=== PATIENT | male | born 1965 | race American Indian/Alaskan Native ===

== ENCOUNTER 2020-02-10 13:42 | Inpatient (IN) | payer OTHER ==
--- NOTE | 2020-02-10 14:01 | Consultation ---
History of Present Illness Consult date: 02/10/20 History of present illness: [facility] Date of Service: 02/10/2020 13:42:23 Impression: Hyperglycemia related. Seizure Comments/Sign-Out: Patient presented with left hand twitching happened last night and again an hour ago. He also today felt his left face is weak. His BG was 411. Now is baseline - BG management - Consider EEG and TIA work up Metrics: Last Known Well: 02/10/2020 12:30:00 [facility] Notification Time: 02/10/2020 13:41:56 Arrival Time: 02/10/2020 13:30:00 Stamp Time: 02/10/2020 13:42:23 Time First Login Attempt: 02/10/2020 13:49:07 Video Start Time: 02/10/2020 13:49:07 Symptoms: hands twitching NIHSS Start Assessment Time: 02/10/2020 13:52:29 Patient is not a candidate for tPA. Patient was not deemed candidate for tPA thrombolytics because of Resolved symptoms (no residual disabling symptoms). Video End Time: 02/10/2020 13:56:33 CT head showed no acute hemorrhage or acute core infarct. CT head was reviewed. Clinical Presentation is not Suggestive of Large Vessel Occlusive Disease, Patient is not a Candidate for Thrombectomy ED Physician notified of diagnostic impression and management plan on 02/10/2020 13:58:06 Our recommendations are outlined below. Recommendations: Activate Stroke Protocol Admission/Order Set Stroke/Telemetry Floor Neuro Checks Bedside Swallow Eval DVT Prophylaxis IV Fluids, Normal Saline Head of Bed Below 30 Degrees Euglycemia and Avoid Hyperthermia (PRN Acetaminophen) Antiplatelet Therapy Recommended Lipid Panel to Be Obtained, if Not Done in the Last 30 Days Disposition: Neurology Follow Up Recommended Sign Out: Discussed with Emergency Department Provider History of Present Illness: Patient is a 54 year old Male. Patient was brought by EMS for symptoms of hands twitching Patient presented with left hand twitching happened last night and again an hour ago. He also today felt his left face is weak. His BG was 411. Now is baseline CT head showed no acute hemorrhage or acute core infarct. CT head was reviewed. Examination: 1A: Level of Consciousness - Alert; keenly responsive + 0 1B: Ask Month and Age - Both Questions Right + 0 1C: Blink Eyes & Squeeze Hands - Performs Both Tasks + 0 2: Test Horizontal Extraocular Movements - Normal + 0 3: Test Visual [place] - No Visual Loss + 0 4: Test Facial Palsy (Use Grimace if Obtunded) - Normal symmetry + 0 5A: Test Left Arm Motor Drift - No Drift for 10 Seconds + 0 5B: Test Right Arm Motor Drift - No Drift for 10 Seconds + 0 6A: Test Left Leg Motor Drift - No Drift for 5 Seconds + 0 6B: Test Right Leg Motor Drift - No Drift for 5 Seconds + 0 7: Test Limb Ataxia (FNF/Heel-Pulliam) - No Ataxia + 0 8: Test Sensation - Normal; No sensory loss + 0 9: Test Language/Aphasia - Normal; No aphasia + 0 10: Test Dysarthria - Normal + 0 11: Test Extinction/Inattention - No abnormality + 0 NIHSS Score: 0 Patient was informed the Neurology Consult would happen via TeleHealth consult by way of interactive audio and video telecommunications and consented to receiving care in this manner. Due to the immediate potential for life-threatening deterioration due to underlying acute neurologic illness, I spent 35 minutes providing critical care. This time includes time for face to face visit via telemedicine, review of medical records, imaging studies and discussion of findings with providers, the patient and/or family. Dr Mohan [facility] Case [id number] Medications and Allergies Allergies Allergy/AdvReac Type Severity Reaction Status Date / Time No Known Allergies Allergy Unverified 02/10/20 13:44
--- NOTE | 2020-02-10 14:05 | Cat Scan Report ---
CT HEAD WITHOUT CONTRAST INDICATION / CLINICAL INFORMATION: MAIN: CODE STROKE CALL [phone]. TECHNIQUE: Axial imaging performed from the skull apex through the skull base without the use of cont rast. Sagittal and coronal reformatted images. All CT scans at this location are performed using CT dose reduction for ALARA by means of automated exposure control. COMPARISON: None available. FINDINGS: CEREBRAL PARENCHYMA: No significant abnormality. No acute territorial infarct. HEMORRHAGE: None. EXTRA-AXIAL SPACES: Normal in size and morphology for the patient's age. VENTRICULAR SYSTEM: Normal in size and morphology for the patient's age. MIDLINE SHIFT OR HERNIATION: None. CEREBELLUM / BRAINSTEM: No significant abnormality. CALVARIUM: No significant abnormality. ORBITS: Normal as visualized. PARANASAL SINUSES / MASTOID AIR CELLS: Normal as visualized. SOFT TISSUES of HEAD: No significant abnormality. ADDITIONAL FINDINGS: None. IMPRESSION: No acute intracranial abnormality. These findings were discussed with Dr. Bonilla in the emergency department at 1400 hours. Signer Name: Haim Mcgovern Jr, MD Signed: 02/10/2020 2:01 PM Workstation Name: [id number]
[2020-02-10 14:25] LABS: Basophils % (Auto) 0.4 % (0.0-1.8); Eosinophils # (Auto) 0.1 K/mm3 (0.0-0.4); Eosinophils % (Auto) 1.6 % (0.0-4.3); Hematocrit 44.5 % (35.5-45.6); Hemoglobin 14.2 gm/dl (11.8-15.2); Lymphocytes # (Auto) 1.9 K/mm3 (1.2-5.4); Lymphocytes % (Auto) 35.9 % (13.4-35.0); Mean Corpuscular HGB Conc 32 % (32-34); Mean Corpuscular Volume 68 fl (84-94); Monocytes # (Auto) 0.5 K/mm3 (0.0-0.8); Platelet Count 282 K/mm3 (140-440); Red Blood Count 6.58 M/mm3 (3.65-5.03); Red Cell Distribution Width 14.2 % (13.2-15.2)
[2020-02-10 14:35] LABS: BUN/Creatinine Ratio 13; Blood Urea Nitrogen 9 mg/dL (9-20); Calcium 9.3 mg/dL (8.4-10.2); Hemolysis Index 6
[2020-02-10 14:50] LABS: INR 1.05 (0.87-1.13)
[2020-02-10 14:51] LABS: Partial Thromboplastin Time 28.7 Sec. (24.2-36.6)
--- NOTE | 2020-02-10 15:00 | Emergency Department Report ---
ED General Adult HPI - General Chief complaint: Neuro Symptoms/Deficit Stated complaint: STROKE Time Seen by Provider: 02/10/20 14:26 Source: patient, EMS Mode of arrival: Stretcher Limitations: No Limitations - History of Present Illness Initial comments: The patient presents to the emergency department with a chief complaint of left arm numbness and hand twitching that started approximately 1 PM today. Patient also states he has slurred speech but has now resolved. Patient denies chest pain, shortness breath, or headache. -: Sudden Location: upper extremity Radiation: non-radiation Severity scale (0 -10): 0 Consistency: now resolved Improves with: none Worsens with: none Associated Symptoms: denies other symptoms Treatments Prior to Arrival: none - Related Data Allergies Allergy/AdvReac Type Severity Reaction Status Date / Time No Known Allergies Allergy Unverified 02/10/20 13:44 ED Review of Systems ROS: Stated complaint: STROKE Other details as noted in HPI Comment: All other systems reviewed and negative Constitutional: denies: chills, fever Eyes: denies: eye pain, eye discharge, vision change ENT: denies: ear pain, throat pain Respiratory: denies: cough, shortness of breath, wheezing Cardiovascular: denies: chest pain, palpitations Endocrine: no symptoms reported Gastrointestinal: denies: abdominal pain, nausea, diarrhea Genitourinary: denies: urgency, dysuria Musculoskeletal: denies: back pain, joint swelling, arthralgia Skin: denies: rash, lesions Neurological: numbness. denies: headache, weakness, paresthesias Psychiatric: denies: anxiety, depression Hematological/Lymphatic: denies: easy bleeding, easy bruising ED Past Medical Hx - Past Medical History Previous Medical History?: Yes Hx Hypertension: Yes Hx Diabetes: Yes ED Physical Exam - General Limitations: No Limitations General appearance: alert, in no apparent distress - Head Head exam: Present: atraumatic, normocephalic - Eye Eye exam: Present: normal appearance, PERRL, EOMI - ENT ENT exam: Present: mucous membranes moist - Neck Neck exam: Present: normal inspection - Respiratory Respiratory exam: Present: normal lung sounds bilaterally. Absent: respiratory distress - Cardiovascular Cardiovascular Exam: Present: regular rate, normal rhythm. Absent: systolic murmur, diastolic murmur, rubs, gallop - GI/Abdominal GI/Abdominal exam: Present: soft, normal bowel sounds. Absent: distended, tenderness - Rectal Rectal exam: Present: deferred - Extremities Exam Extremities exam: Present: normal inspection - Back Exam Back exam: Present: normal inspection - Neurological Exam Neurological exam: Present: alert, oriented X3, CN II-XII intact. Absent: motor sensory deficit - Psychiatric Psychiatric exam: Present: normal affect, normal mood - Skin Skin exam: Present: warm, dry, intact, normal color. Absent: rash ED Course Vital Signs 02/10/20 02/10/20 02/10/20 13:56 14:00 14:05 Temperature 98.7 F Pulse Rate 96 H 100 H 95 H Respiratory 15 14 Rate Blood Pressure 147/86 Blood Pressure 147/86 [Left] O2 Sat by Pulse 96 96 95 Oximetry 02/10/20 02/10/20 02/10/20 14:07 15:00 15:29 Temperature Pulse Rate 91 H 86 Respiratory 18 Rate Blood Pressure 133/69 Blood Pressure 133/69 [Left] O2 Sat by Pulse 96 95 97 Oximetry ED Medical Decision Making - Lab Data Result diagrams: 02/10/20 14:12 02/10/20 14:12 Lab Results 02/10/20 02/10/20 02/10/20 Range/Units 14:12 14:12 14:12 WBC 5.3 (4.5-11.0) K/mm3 RBC 6.58 H (3.65-5.03) M/mm3 Hgb 14.2 (11.8-15.2) gm/dl Hct 44.5 (35.5-45.6) % MCV 68 L (84-94) fl MCH 22 L (28-32) pg MCHC 32 (32-34) % RDW 14.2 (13.2-15.2) % Plt Count 282 (140-440) K/mm3 Lymph % (Auto) 35.9 H (13.4-35.0) % [place] % (Auto) 9.0 H (0.0-7.3) % Eos % (Auto) 1.6 (0.0-4.3) % Baso % (Auto) 0.4 (0.0-1.8) % Lymph # 1.9 (1.2-5.4) K/mm3 [place] # 0.5 (0.0-0.8) K/mm3 Eos # 0.1 (0.0-0.4) K/mm3 Baso # 0.0 (0.0-0.1) K/mm3 Seg Neutrophils % 53.1 (40.0-70.0) % Seg Neutrophils # 2.8 (1.8-7.7) K/mm3 PT 13.8 (12.2-14.9) Sec. INR 1.05 (0.87-1.13) APTT 28.7 (24.2-36.6) Sec. Sodium 129 L (137-145) mmol/L Potassium 4.4 (3.6-5.0) mmol/L Chloride 91.3 L (98-107) mmol/L Carbon Dioxide 22 (22-30) mmol/L Anion Gap 20 mmol/L BUN 9 (9-20) mg/dL Creatinine 0.7 L (0.8-1.5) mg/dL Estimated GFR > 60 ml/min BUN/Creatinine Ratio 13 % Glucose 417 H (75-100) mg/dL POC Glucose (70-105) Calcium 9.3 (8.4-10.2) mg/dL Troponin T < 0.010 (0.00-0.029) ng/mL 02/10/20 Range/Units 14:16 WBC (4.5-11.0) K/mm3 RBC (3.65-5.03) M/mm3 Hgb (11.8-15.2) gm/dl Hct (35.5-45.6) % MCV (84-94) fl MCH (28-32) pg MCHC (32-34) % RDW (13.2-15.2) % Plt Count (140-440) K/mm3 Lymph % (Auto) (13.4-35.0) % [place] % (Auto) (0.0-7.3) % Eos % (Auto) (0.0-4.3) % Baso % (Auto) (0.0-1.8) % Lymph # (1.2-5.4) K/mm3 [place] # (0.0-0.8) K/mm3 Eos # (0.0-0.4) K/mm3 Baso # (0.0-0.1) K/mm3 Seg Neutrophils % (40.0-70.0) % Seg Neutrophils # (1.8-7.7) K/mm3 PT (12.2-14.9) Sec. INR (0.87-1.13) APTT (24.2-36.6) Sec. Sodium (137-145) mmol/L Potassium (3.6-5.0) mmol/L Chloride (98-107) mmol/L Carbon Dioxide (22-30) mmol/L Anion Gap mmol/L BUN (9-20) mg/dL Creatinine (0.8-1.5) mg/dL Estimated GFR ml/min BUN/Creatinine Ratio % Glucose (75-100) mg/dL POC Glucose 356 H (70-105) Calcium (8.4-10.2) mg/dL Troponin T (0.00-0.029) ng/mL - EKG Data -: EKG Interpreted by Me EKG shows normal: sinus rhythm Rate: normal - Radiology Data interpreted by me: Discussed results with patient Critical care attestation.: If time is entered above; I have spent that time in minutes in the direct care of this critically ill patient, excluding procedure time. ED Disposition Clinical Impression: Numbness Disposition: DC-01 TO HOME OR SELFCARE Is pt being admited?: Yes Does the pt Need Aspirin: No Condition: Fair - Assessment Assessment Interval: Baseline - Level of Consciousness 1a. Level of Consciousness: alert/keenly responsive - LOC Questions 1b. LOC Questions: answers both correctly - LOC Command 1c. LOC Commands: performs tasks correctly - Best Gaze 2. Best Gaze: normal - Visual 3. Visual: no visual loss - Facial Palsy 4. Facial Palsy: normal symmetrical movement - Motor Arm 5a. Motor Arm Left: no drift 5b. Motor Arm Right: no drift - Motor Leg 6a. Motor Leg Left: no drift 6b. Motor Leg Right: no drift - Limb Ataxia 7. Limb Ataxia: absent - Sensory 8. Sensory: normal - Best Language 9. Best Language: no aphasia - Dysarthria 10. Dysarthria: normal - Extinction and Inattention 11. Extinction/Inattention: no abnormality - Scoring Total Score: 0 Stroke Severity: No Stroke Symptoms
[2020-02-10] MEDS ORDERED: ASPIRIN 81 MG TAB CHEW PO ONE ×2 (16:31→23:15)
[2020-02-10] MEDS ORDERED: oxyCODONE /ACETAMINOPHEN 5-325MG TAB PO PRN (22:07)
[2020-02-10] MEDS ORDERED: ONDANSETRON 4 MG/2 ML INJ IV PRN (22:07)
[2020-02-10] MEDS ORDERED: HYDROmorphone 1 MG/1 ML INJ IV PRN (22:07)
[2020-02-10] MEDS ORDERED: ACETAMINOPHEN 325 MG TAB PO PRN (22:07)
[2020-02-10] MEDS ORDERED: METOCLOPRAMIDE 10 MG/2 ML INJ IV PRN (22:07)
--- NOTE | 2020-02-10 22:07 | History and Physical Report ---
History of Present Illness Date of examination: 02/10/20 Date of admission: 02/10/20 17:24 Chief complaint: L arm numbness since yesterday Left side numbness face arl and Lower extremity since AM History of present illness: 54 y/o AAM presents to the emergency department with a chief complaint of left arm numbness and hand twitching that started approximately 1 PM today. Patient also states he has slurred speech but has now resolved. Patient denies chest pain, shortness breath, or headache. -: Sudden Location: upper extremity Radiation: non-radiation Severity scale (0 -10): 0 Consistency: now resolved Improves with: none Worsens with: none Associated Symptoms: denies other symptoms Treatments Prior to Arrival: none Past Medical History Previous Medical History?: Yes HHypertension: Yes Diabetes -not on any mmeds Review of Systems ROS: Stated complaint: STROKE Other details as noted in HPI Comment: All other systems reviewed and negative Constitutional: denies: chills, fever Eyes: denies: eye pain, eye discharge, vision change ENT: denies: ear pain, throat pain Respiratory: denies: cough, shortness of breath, wheezing Cardiovascular: denies: chest pain, palpitations Endocrine: no symptoms reported Gastrointestinal: denies: abdominal pain, nausea, diarrhea Genitourinary: denies: urgency, dysuria Musculoskeletal: denies: back pain, joint swelling, arthralgia Skin: denies: rash, lesions Neurological: numbness. denies: headache, weakness, paresthesias Psychiatric: denies: anxiety, depression Hematological/Lymphatic: denies: easy bleeding, easy bruising Past History Past Medical History: hypertension Past Surgical History: No surgical history Social history: lives with family, full code Family history: hypertension Medications and Allergies Allergies Allergy/AdvReac Type Severity Reaction Status Date / Time No Known Allergies Allergy Unverified 02/10/20 13:44 Exam - Constitutional Vitals: Temp Pulse Resp BP Pulse Ox 98.5 F 104 H 21 150/70 94 02/10/20 20:17 02/10/20 21:10 02/10/20 21:10 02/10/20 21:10 02/10/20 20:17 General appearance: Present: no acute distress, well-nourished - EENT Eyes: Present: PERRL ENT: hearing intact, clear oral mucosa - Neck Neck: Present: supple, normal ROM - Respiratory Respiratory effort: normal Respiratory: bilateral: CTA - Cardiovascular Heart rate: 78 Rhythm: regular Heart Sounds: Present: S1 & S2. Absent: rub, click - Extremities Extremities: pulses symmetrical, No edema Peripheral Pulses: within normal limits - Abdominal General gastrointestinal: Present: soft, non-tender, non-distended, normal bowel sounds Male genitourinary: Present: normal - Integumentary Integumentary: Present: clear, warm, dry - Musculoskeletal Musculoskeletal: gait normal, strength equal bilaterally - Psychiatric Psychiatric: appropriate mood/affect, intact judgment & insight - Neurologic Neurologic: CNII-XII intact, moves all extremities Results - Labs CBC & Chem 7: 02/11/20 04:17 02/11/20 04:17 Labs: Laboratory Last Values WBC 5.3 K/mm3 (4.5-11.0) 02/10/20 14:12 RBC 6.58 M/mm3 (3.65-5.03) H 02/10/20 14:12 Hgb 14.2 gm/dl (11.8-15.2) 02/10/20 14:12 Hct 44.5 % (35.5-45.6) 02/10/20 14:12 MCV 68 fl (84-94) L 02/10/20 14:12 MCH 22 pg (28-32) L 02/10/20 14:12 MCHC 32 % (32-34) 02/10/20 14:12 RDW 14.2 % (13.2-15.2) 02/10/20 14:12 Plt Count 282 K/mm3 (140-440) 02/10/20 14:12 Lymph % (Auto) 35.9 % (13.4-35.0) H 02/10/20 14:12 [place] % (Auto) 9.0 % (0.0-7.3) H 02/10/20 14:12 Eos % (Auto) 1.6 % (0.0-4.3) 02/10/20 14:12 Baso % (Auto) 0.4 % (0.0-1.8) 02/10/20 14:12 Lymph # 1.9 K/mm3 (1.2-5.4) 02/10/20 14:12 [place] # 0.5 K/mm3 (0.0-0.8) 02/10/20 14:12 Eos # 0.1 K/mm3 (0.0-0.4) 02/10/20 14:12 Baso # 0.0 K/mm3 (0.0-0.1) 02/10/20 14:12 Seg Neutrophils % 53.1 % (40.0-70.0) 02/10/20 14:12 Seg Neutrophils # 2.8 K/mm3 (1.8-7.7) 02/10/20 14:12 PT 13.8 Sec. (12.2-14.9) 02/10/20 14:12 INR 1.05 (0.87-1.13) 02/10/20 14:12 APTT 28.7 Sec. (24.2-36.6) 02/10/20 14:12 Sodium 129 mmol/L (137-145) L 02/10/20 14:12 Potassium 4.4 mmol/L (3.6-5.0) 02/10/20 14:12 Chloride 91.3 mmol/L (98-107) L 02/10/20 14:12 Carbon Dioxide 22 mmol/L (22-30) 02/10/20 14:12 Anion Gap 20 mmol/L 02/10/20 14:12 BUN 9 mg/dL (9-20) 02/10/20 14:12 Creatinine 0.7 mg/dL (0.8-1.5) L 02/10/20 14:12 Estimated GFR > 60 ml/min 02/10/20 14:12 BUN/Creatinine Ratio 13 % 02/10/20 14:12 Glucose 417 mg/dL (75-100) H 02/10/20 14:12 POC Glucose 325 (70-105) H 02/10/20 21:41 Calcium 9.3 mg/dL (8.4-10.2) 02/10/20 14:12 Troponin T < 0.010 ng/mL (0.00-0.029) 02/10/20 14:12 Short CBC 02/10/20 02/11/20 Range/Units 14:12 04:17 WBC 5.3 5.6 (4.5-11.0) K/mm3 Hgb 14.2 14.6 (11.8-15.2) gm/dl Hct 44.5 46.2 H (35.5-45.6) % Plt Count 282 303 (140-440) K/mm3 BMP 02/10/20 02/11/20 14:12 04:17 Sodium 129 L 130 L Potassium 4.4 4.2 Chloride 91.3 L 93.1 L Carbon Dioxide 22 22 BUN 9 11 Creatinine 0.7 L 0.7 L Glucose 417 H 295 H Calcium 9.3 9.2 Cardiac Enzymes 02/10/20 Range/Units 14:12 Troponin T < 0.010 (0.00-0.029) ng/mL Liver Function 02/11/20 Range/Units 04:17 Total Bilirubin 0.30 (0.1-1.2) mg/dL AST 11 (5-40) units/L ALT 11 (7-56) units/L Alkaline Phosphatase 135 H (35-129) units/L Albumin 3.8 L (3.9-5) g/dL - Imaging and Cardiology EKG: report reviewed (NSR 99/min) Villar/IV: Voiding Method Toilet IV Catheter Type [Left INT / Saline Lock Antecubital] Assessment and Plan Advance Directives: Yes (Full code) VTE prophylaxis?: Chemical Plan of care discussed with patient/family: Yes - Patient Problems (1) TIA (transient ischemic attack) Current Visit: Yes Status: Acute Plan to address problem: TIA workup Neuro consult Symptoms maybe secondary to Hyperglycemia which is new onset Check MRi [place] ECHO and CDS (2) IDDM (insulin dependent diabetes mellitus) Current Visit: Yes Status: Chronic Plan to address problem: On Insulin at home Noncompliant Novalog mix 35units bid initiated Check A1c (3) HTN (hypertension) Current Visit: Yes Status: Chronic Qualifiers: Hypertension type: essential hypertension Qualified Code(s): I10 - Essential (primary) hypertension Plan to address problem: Cont antihypertensives (4) DVT prophylaxis Current Visit: Yes Status: Acute Plan to address problem: on Heparin and GI prophylaxis
[2020-02-10] MEDS ORDERED: SODIUM CHLORIDE 0.9% 1000 ML 1,000 ML IV SCH (22:15)
[2020-02-10] MEDS: INSULIN LISPRO 100 UNIT/ML SUB-Q SCH (22:29)
[2020-02-11 05:00] LABS: Basophils % (Auto) 0.4 % (0.0-1.8); Eosinophils # (Auto) 0.2 K/mm3 (0.0-0.4); Eosinophils % (Auto) 2.9 % (0.0-4.3); Hematocrit 46.2 % (35.5-45.6); Hemoglobin 14.6 gm/dl (11.8-15.2); Lymphocytes # (Auto) 2.4 K/mm3 (1.2-5.4); Lymphocytes % (Auto) 43.6 % (13.4-35.0); Mean Corpuscular HGB Conc 32 % (32-34); Monocytes # (Auto) 0.6 K/mm3 (0.0-0.8); Monocytes % (Auto) 10.2 % (0.0-7.3); Platelet Count 303 K/mm3 (140-440); Red Blood Count 6.85 M/mm3 (3.65-5.03); Red Cell Distribution Width 14.6 % (13.2-15.2)
[2020-02-11 05:10] LABS: Mean Corpuscular Volume 67 fl (84-94)
[2020-02-11 06:02] LABS: Alanine Aminotransferase 11 units/L (7-56); Albumin 3.8 g/dL (3.9-5); BUN/Creatinine Ratio 16; Blood Urea Nitrogen 11 mg/dL (9-20); Calcium 9.2 mg/dL (8.4-10.2); HDL Cholesterol 33 mg/dL (40-59); Hemolysis Index 2; LDL Cholesterol,Direct 122 mg/dL (50-130)
[2020-02-11] MEDS ORDERED: INSULIN LISPRO 100 UNIT/ML SUB-Q SCH (07:30)
[2020-02-11] MEDS: INSULIN LISPRO 100 UNIT/ML SUB-Q SCH ×4 (07:30→21:50)
[2020-02-11] MEDS ORDERED: INSULIN NPH/REGULAR 70/30 INJ SUB-Q SCH (08:00)
--- NOTE | 2020-02-11 09:10 | Progress Note ---
Assessment and Plan Assessment and plan: --Acute CVA Current Visit: Yes Status: Acute Not a candidate for TPA CT head without contrast; no acute abnormality Neuro work-up is in progress Neuro consulted Aspirin statin. PT OT rehab Discharge planning per case management Neuro work-up; CT head without contrast; no acute abnormality MRI; 2 punctate foci of restricted diffusion in the right periventricular white matter Carotid Doppler; right internal carotid artery more than 70% stenosis but less than total occlusion Left internal carotid artery less than 50% stenosis. --Right internal carotid artery stenosis> 70% Vascular consulted, antiplatelets and statins --IDDM (insulin dependent diabetes mellitus) Current Visit: Yes Status: Chronic On Insulin at home. Novalog mix 35units bid initiated Accu-Chek sliding scale coverage ADA diet HbA1c 14.7, diabetic education Diabetic diet education Possible home health nurse for disease monitoring at discharge --Medical noncompliance Current Visit: Yes Status: Chronic strongly advised to comply with medications diet follow-up visits Patient verbalized understanding --HTN (hypertension) Current Visit: Yes Status: Chronic Cont current antihypertensives PRN medications. --Ongoing tobacco use; Current Visit: Yes Status: Acute Smoking cessation counseling. Nicotine patch as needed. --Recreational drug use; Current Visit: Yes Status: Acute Advised to quit recreational drug use -- DVT prophylaxis Current Visit: Yes Status: Acute on Heparin and GI prophylaxis Follow PT OT DC planning per case management History Interval history: Patient seen at the bedside and examined Admitted with acute CVA Neuro work-up is in progress Patient had slurring speech which resolved Mild left-sided weakness Vital signs noted Hospitalist Physical - Constitutional Vitals: Temp Pulse Resp BP Pulse Ox 98.2 F 69 18 126/69 100 02/11/20 05:37 02/11/20 05:37 02/11/20 05:37 02/11/20 05:37 02/11/20 05:37 General appearance: Present: no acute distress, well-nourished - EENT Eyes: Present: PERRL, EOM intact - Neck Neck: Present: supple, normal ROM - Respiratory Respiratory effort: normal Respiratory: bilateral: diminished, negative: rales, rhonchi, wheezing - Cardiovascular Rhythm: regular Heart Sounds: Present: S1 & S2 - Extremities Extremities: no ischemia, No edema - Abdominal General gastrointestinal: soft, non-tender, non-distended, normal bowel sounds - Integumentary Integumentary: Present: clear, warm - Psychiatric Psychiatric: appropriate mood/affect, cooperative - Neurologic Neurologic: moves all extremities, other (Residual weakness) Results - Labs CBC & Chem 7: 02/11/20 04:17 02/11/20 04:17 Labs: Laboratory Last Values WBC 5.6 K/mm3 (4.5-11.0) 02/11/20 04:17 RBC 6.85 M/mm3 (3.65-5.03) H 02/11/20 04:17 Hgb 14.6 gm/dl (11.8-15.2) 02/11/20 04:17 Hct 46.2 % (35.5-45.6) H 02/11/20 04:17 MCV 67 fl (84-94) L 02/11/20 04:17 MCH 21 pg (28-32) L 02/11/20 04:17 MCHC 32 % (32-34) 02/11/20 04:17 RDW 14.6 % (13.2-15.2) 02/11/20 04:17 Plt Count 303 K/mm3 (140-440) 02/11/20 04:17 Lymph % (Auto) 43.6 % (13.4-35.0) H 02/11/20 04:17 [place] % (Auto) 10.2 % (0.0-7.3) H 02/11/20 04:17 Eos % (Auto) 2.9 % (0.0-4.3) 02/11/20 04:17 Baso % (Auto) 0.4 % (0.0-1.8) 02/11/20 04:17 Lymph # 2.4 K/mm3 (1.2-5.4) 02/11/20 04:17 [place] # 0.6 K/mm3 (0.0-0.8) 02/11/20 04:17 Eos # 0.2 K/mm3 (0.0-0.4) 02/11/20 04:17 Baso # 0.0 K/mm3 (0.0-0.1) 02/11/20 04:17 Seg Neutrophils % 42.9 % (40.0-70.0) 02/11/20 04:17 Seg Neutrophils # 2.4 K/mm3 (1.8-7.7) 02/11/20 04:17 PT 13.8 Sec. (12.2-14.9) 02/10/20 14:12 INR 1.05 (0.87-1.13) 02/10/20 14:12 APTT 28.7 Sec. (24.2-36.6) 02/10/20 14:12 Sodium 130 mmol/L (137-145) L 02/11/20 04:17 Potassium 4.2 mmol/L (3.6-5.0) 02/11/20 04:17 Chloride 93.1 mmol/L (98-107) L 02/11/20 04:17 Carbon Dioxide 22 mmol/L (22-30) 02/11/20 04:17 Anion Gap 19 mmol/L 02/11/20 04:17 BUN 11 mg/dL (9-20) 02/11/20 04:17 Creatinine 0.7 mg/dL (0.8-1.5) L 02/11/20 04:17 Estimated GFR > 60 ml/min 02/11/20 04:17 BUN/Creatinine Ratio 16 % 02/11/20 04:17 Glucose 295 mg/dL (75-100) H 02/11/20 04:17 POC Glucose 257 (70-105) H 02/11/20 08:12 Hemoglobin A1c 14.7 % (4-6) H 02/10/20 14:12 Calcium 9.2 mg/dL (8.4-10.2) 02/11/20 04:17 Total Bilirubin 0.30 mg/dL (0.1-1.2) 02/11/20 04:17 AST 11 units/L (5-40) 02/11/20 04:17 ALT 11 units/L (7-56) 02/11/20 04:17 Alkaline Phosphatase 135 units/L (35-129) H 02/11/20 04:17 Troponin T < 0.010 ng/mL (0.00-0.029) 02/10/20 14:12 Total Protein 7.4 g/dL (6.3-8.2) 02/11/20 04:17 Albumin 3.8 g/dL (3.9-5) L 02/11/20 04:17 Albumin/Globulin Ratio 1.1 % 02/11/20 04:17 Triglycerides 277 mg/dL (2-149) H 02/11/20 04:17 Cholesterol 185 mg/dL (50-199) 02/11/20 04:17 LDL Cholesterol Direct 122 mg/dL (50-130) 02/11/20 04:17 HDL Cholesterol 33 mg/dL (40-59) L 02/11/20 04:17 Cholesterol/HDL Ratio 5.60 % 02/11/20 04:17 Villar/IV: Voiding Method Toilet IV Catheter Type [Left INT / Saline Lock Antecubital] Active Medications - Current Medications Current Medications: Generic Name Dose Route Start Last Admin Trade Name Freq PRN Reason Stop Dose Admin Acetaminophen 650 mg 02/10/20 22:07 Tylenol PO Q4H PRN Pain MILD(1-3)/Fever >100.5/COPE Famotidine 20 mg 02/11/20 10:00 Pepcid IV BID [facility] Heparin Sodium (Porcine) 5,000 unit 02/11/20 10:00 Heparin SUB-Q Q12HR [facility] Hydromorphone HCl 0.5 mg 02/10/20 22:07 Dilaudid IV Q3H PRN Pain , Severe (7-10) Sodium Chloride 1,000 mls @ 75 mls/hr 02/10/20 22:15 Nacl 0.9% 1000 Ml IV DIRECT [facility] Insulin Human Isoph/Insulin Regular 30 unit 02/11/20 08:30 Humulin 70/30 SUB-Q BIDDIAB [facility] Insulin Human Lispro 0 unit 02/10/20 22:30 02/10/20 22:29 Humalog SUB-Q 6 unit ACHS [facility] Administration Protocol Losartan Potassium 100 mg 02/11/20 08:00 Cozaar PO QDAY [facility] Metoclopramide HCl 10 mg 02/10/20 22:07 Reglan IV Q6H PRN Nausea And Vomiting Ondansetron HCl 4 mg 02/10/20 22:07 Zofran IV Q8H PRN Nausea And Vomiting Oxycodone/Acetaminophen 1 tab 02/10/20 22:07 Percocet 5/325 PO Q6H PRN Pain, Moderate (4-6) Sodium Chloride 10 ml 02/11/20 10:00 Sodium Chloride Flush Syringe 10 Ml IV BID [facility] Sodium Chloride 10 ml 02/10/20 22:07 Sodium Chloride Flush Syringe 10 Ml IV PRN PRN LINE FLUSH
[2020-02-11] MEDS: LOSARTAN 50 MG TAB PO SCH ×2 (10:20→11:00)
--- NOTE | 2020-02-11 10:38 | Vascular Lab Report ---
"DUPLEX DOPPLER ULTRASOUND CAROTID, BILATERAL INDICATION: stroke. FINDINGS: RIGHT CAROTID: Moderate plaque Right CCA velocity: 108 cm/sec. Right ICA peak systolic velocity: 239 cm/sec. ICA/CCA PSV Ratio: 2.2. Right Vertebral Artery: Antegrade flow. LEFT CAROTID: Mild plaque Left CCA velocity: 80 cm/sec. Left ICA peak systolic velocity: 103 cm/sec. ICA/CCA PSV Ratio: 1.3. Left Vertebral Artery: Antegrade flow. IMPRESSION: 1. Right Internal Carotid Artery: >70% diameter stenosis but less than total occlusion 2. Left Internal Carotid Artery: Less than 50% diameter stenosis. Velocity criteria are extrapolated from diameter data as defined by the Society of Radiologists in Ul trasound Consensus Conference, Radiology 2003; 229;340-346. Degree of Stenosis (%) || ICA PSV (cm/sec) || Plaque estimate (%) || ICA/CCA PSV Ratio Normal <125 None <2.0 <50 <125 <50 <2.0 50-69 125-230 50 2.0-4.0 70 but less than 100 >230 50 >4.0 Near occlusion High, low, or none visible variable Total occlusion None visible; no lumen N/A Signer Name: Shaggy Locke MD Signed: 02/11/2020 10:33 AM Workstation Name: [id number]"
--- NOTE | 2020-02-11 10:49 | Magnetic Resonance Report ---
MRI BRAIN 02/11/2020 INDICATION / CLINICAL INFORMATION: MAIN: stroke, LT ARM NUMBNESS PATIENT REFUSED TO COMPLETE STUDY.. TECHNIQUE: Multiplanar, multisequence MR images of the brain were obtained. COMPARISON: CT 02/10/2020 FINDINGS: BRAIN / INTRACRANIAL CONTENTS: Unenhanced MR images of the brain were obtained and compared to the [facility] CT scan. There are 2 punctate foci of increased signal on the diffusion-weighted images located in the right f rontal and parietal periventricular white matter. These appear to be associated with some decreased A DC signal, and would be consistent with very small foci of acute ischemic injury. No other areas of s ubcortical or cortical acute ischemic change are present. Ventricles and sulci are normal in size and shape. There is no evidence of hemorrhage or mass. There are no other areas of abnormal T2-weighted or diffusion weighted signal. Incidental note is made of possible small meningioma in the left subfrontal region. This 1 cm extra-a xial nodule is densely calcified on CT,. Differential diagnosis would include densely calcified menin gioma versus benign osteoma. This is of unlikely acute clinical significance. EXTRACRANIAL: Unremarkable CRANIOCERVICAL JUNCTION: No significant abnormality. VASCULAR FLOW-VOIDS: No significant abnormality. IMPRESSION: 2 punctate foci of restricted diffusion in right periventricular white matter as described above. Se e above discussion for details. Signer Name: Zach Blanchard MD Signed: 02/11/2020 10:44 AM Workstation Name: [id number]
[2020-02-11] MEDS: INSULIN NPH/REGULAR 70/30 INJ SUB-Q SCH ×2 (10:53→17:02)
[2020-02-11] MEDS: FAMOTIDINE 20 MG/2 ML INJ IV SCH ×2 (10:59→21:46)
[2020-02-11] MEDS: HEPARIN 5,000 UNIT/1 ML VIAL SUB-Q SCH ×2 (11:05→21:46)
--- NOTE | 2020-02-11 12:16 | Consultation ---
History of Present Illness Consult date: 02/11/20 Reason for Consult: Left hand weakness, slurred speech Chief complaint: Left hand weakness, slurred speech History of present illness: Patient is a 54-year-old man with a history of diabetes and hypertension. Yesterday at around 1 PM, the patient began to experience left hand paresthesias and numbness. He then noted that his left hand was involuntarily twitching, however he did not lose consciousness. This lasted for about 3 to 5 minutes. He then experienced slurred speech, which lasted around the same period of time. Patient was then brought to [facility] for further evaluation. His symptoms had resolved by the time he came to the hospital, and NIHSS was 0 when evaluated by telemetry neurology. However, patient stated that he felt some mild weakness in the left upper extremity, which improved by yesterday evening. Today the patient feels that he is back at baseline, however feels that he has mild blurry vision in his right eye. Patient states that he takes aspirin at home, however has not been compliant with his medications for the past few weeks, including his diabetes and hypertension medications. Past History Past Medical History: diabetes, hypertension Past Surgical History: No surgical history Social history: lives with family, smoking, full code Family history: hypertension Medications and Allergies Allergies Allergy/AdvReac Type Severity Reaction Status Date / Time No Known Allergies Allergy Unverified 02/10/20 13:44 Active Meds: Active Medications Acetaminophen (Tylenol) 650 mg PO Q4H PRN PRN Reason: Pain MILD(1-3)/Fever >100.5/COPE Aspirin (Halfprin Ec) 81 mg PO QDAY NUPUR Atorvastatin Calcium (Lipitor) 40 mg PO QHS NUPUR Famotidine (Pepcid) 20 mg IV BID [facility] Last Admin: 02/11/20 10:59 Dose: 20 mg Documented by: Heparin Sodium (Porcine) (Heparin) 5,000 unit SUB-Q Q12HR [facility] Last Admin: 02/11/20 11:05 Dose: 5,000 unit Documented by: Hydromorphone HCl (Dilaudid) 0.5 mg IV Q3H PRN PRN Reason: Pain , Severe (7-10) Sodium Chloride (Nacl 0.9% 1000 Ml) 1,000 mls @ 75 mls/hr IV DIRECT [facility] Insulin Human Isoph/Insulin Regular (Humulin 70/30) 30 unit SUB-Q BIDDIAB [facility] Last Admin: 02/11/20 10:53 Dose: 30 unit Documented by: Insulin Human Lispro (Humalog) 0 unit SUB-Q ACHS [facility]; Protocol Last Admin: 02/11/20 07:30 Dose: Not Given Documented by: Losartan Potassium (Cozaar) 100 mg PO QDAY [facility] Last Admin: 02/11/20 11:00 Dose: 100 mg Documented by: Metoclopramide HCl (Reglan) 10 mg IV Q6H PRN PRN Reason: Nausea And Vomiting Ondansetron HCl (Zofran) 4 mg IV Q8H PRN PRN Reason: Nausea And Vomiting Oxycodone/Acetaminophen (Percocet 5/325) 1 tab PO Q6H PRN PRN Reason: Pain, Moderate (4-6) Sodium Chloride (Sodium Chloride Flush Syringe 10 Ml) 10 ml IV BID [facility] Last Admin: 02/11/20 11:07 Dose: 10 ml Documented by: Sodium Chloride (Sodium Chloride Flush Syringe 10 Ml) 10 ml IV PRN PRN PRN Reason: LINE FLUSH Review of Systems All systems: negative Neurological: weakness, numbness Physical Examination - Vital Signs Vital Signs: Vital Signs Pulse Pulse Ox 96 H 96 02/10/20 13:56 02/10/20 13:56 - Physical Exam Narrative exam: Patient is alert, awake, oriented x4, follows complex commands. No dysarthria or aphasia noted. PERRL, EOMI, VFF, tongue midline, bilaterally intact to LT, no facial weakness noted. 5/5 strength in all extremities. Bilaterally intact light touch. Bilaterally intact to FTN and HTS. 2+ reflexes throughout. - Constitutional General appearance: comfortable - EENT EENT: Present: ATNC, PERRL, mucous membranes moist, hearing intact, vision intact - Respiratory Respiratory: Present: lungs clear, normal breath sounds - Cardiovascular Cardiovascular: Present: regular rate, normal S1, normal S2 Extremities: Present: no clubbing, cyanosis, no inflammation - Gastrointestinal Gastrointestinal: Present: normoactive bowel sounds, soft, non-tender - Integumentary Integumentary: Present: normal - Musculoskeletal Musculoskeletal: Present: no fluid collection, no pain - Psychiatric Psychiatric: Present: mood/affect appropriate - Level of Consciousness 1a. Level of Consciousness: alert/keenly responsive - LOC Questions 1b. LOC Questions: answers both correctly - LOC Command 1c. LOC Commands: performs tasks correctly - Best Gaze 2. Best Gaze: normal - Visual 3. Visual: no visual loss - Facial Palsy 4. Facial Palsy: normal symmetrical movement - Motor Arm 5a. Motor Arm Left: no drift 5b. Motor Arm Right: no drift - Motor Leg 6a. Motor Leg Left: no drift 6b. Motor Leg Right: no drift - Limb Ataxia 7. Limb Ataxia: absent - Sensory 8. Sensory: normal - Best Language 9. Best Language: no aphasia - Dysarthria 10. Dysarthria: normal - Extinction and Inattention 11. Extinction/Inattention: no abnormality - Scoring Total Score: 0 Stroke Severity: No Stroke Symptoms Results - Laboratory Findings CBC and BMP: 02/11/20 04:17 02/11/20 04:17 Abnormal Lab Findings: Abnormal Labs 02/10/20 02/10/20 02/10/20 14:12 14:12 14:12 RBC 6.58 H Hct MCV 68 L MCH 22 L Lymph % (Auto) 35.9 H Bennett % (Auto) 9.0 H Sodium 129 L Chloride 91.3 L Creatinine 0.7 L Glucose 417 H POC Glucose Hemoglobin A1c 14.7 H Alkaline Phosphatase Albumin Triglycerides HDL Cholesterol 02/10/20 02/10/20 02/10/20 14:16 21:41 23:44 RBC Hct MCV MCH Lymph % (Auto) Bennett % (Auto) Sodium Chloride Creatinine Glucose POC Glucose 356 H 325 H 316 H Hemoglobin A1c Alkaline Phosphatase Albumin Triglycerides HDL Cholesterol 02/11/20 02/11/20 02/11/20 03:57 04:17 04:17 RBC 6.85 H Hct 46.2 H MCV 67 L MCH 21 L Lymph % (Auto) 43.6 H Bennett % (Auto) 10.2 H Sodium 130 L Chloride 93.1 L Creatinine 0.7 L Glucose 295 H POC Glucose 251 H Hemoglobin A1c Alkaline Phosphatase 135 H Albumin 3.8 L Triglycerides 277 H HDL Cholesterol 33 L 02/11/20 08:12 RBC Hct MCV MCH Lymph % (Auto) Bennett % (Auto) Sodium Chloride Creatinine Glucose POC Glucose 257 H Hemoglobin A1c Alkaline Phosphatase Albumin Triglycerides HDL Cholesterol Assessment and Plan Patient is a 54-year-old man with a history of diabetes and hypertension, who presents with left hand numbness/weakness, slurred speech, and left hand twitching which lasted around 3 to 5 minutes. According the patient's clinical findings, he has had an acute ischemic stroke. Plan: 1. Stroke: - MRI brain: 2 subcortical infarcts noted in the right hemisphere. - CTA head/neck: Pending -Carotid ultrasound: Right ICA 70% stenosis - CT head: No acute abnormality - Echo: Pending - Cont. ASA - Cont. statin. LDL goal <70. Current LDL 122. - Telemetry monitoring while in house - PT/OT/ST - DVT Ppx: Recommend lovenox -Recommended for patient not to drive until cleared by ophthalmology, as he is complaining of mild blurry vision in the right eye. Patient understood and accepted this. -Recommend vascular surgery consult for possible carotid endarterectomy. Plan to further evaluate right carotid artery with CTA head and neck. 2. Hypertension: - Recommend BP goal of <220/120 to allow for permissive HTN for first 24-48 hours. Can target normotension after that. - Will continue to monitor patient. Thank you for allowing me to take part in the care of this patient. Rajiv Durand MD Neurology
[2020-02-11] MEDS: ASPIRIN EC 81 MG TAB PO SCH (12:48)
--- NOTE | 2020-02-11 15:16 | Consultation ---
History of Present Illness - Reason for Consult Consult date: 02/11/20 Carotid stenosis Requesting physician: JOEL HAMILTON - History of Present Illness HPI: 54-year-old gentleman with insulin-dependent diabetes mellitus admitted after an episode of slurred speech and left upper extremity weakness that lasted less than 24 hours. The patient underwent a stroke work-up that included carotid duplex demonstrating significant right-sided carotid stenosis. Patient denies any previous TIA/stroke.like symptoms. The patient is a longtime smoker and currently smokes approximately 10 cigarettes a day. The patient also complains of bilateral lower extremity pain with ambulation after 3-4 blocks. Patient denies any family history of aneurysms. ROS: As per HPI otherwise negative PE: NAD, alert and oriented x3 Regular rate and rhythm Non-labored respirations Abdomen soft, nontender, nondistended, no pulsatile masses Palpable femoral pulses bilaterally, unable to palpate pedal pulses at the ankle bilaterally but both feet are warm Cranial nerves II through XII intact, strength 5 out of 5 throughout, sensory grossly intact Carotid duplex reviewed Brain MRI report reviewed Plan: 54-year-old male presents with severe symptomatic right-sided carotid stenosis Patient with recent TIA which has since resolved Patient to benefit from surgical intervention Patient explained all the benefits/risk associated with carotid endarterectomy and wishes to proceed We will plan on right CEA tomorrow morning N.p.o. after midnight Past History Past Medical History: diabetes, hypertension Past Surgical History: No surgical history Social history: lives with family, smoking, full code Family history: hypertension Medications and Allergies Allergies Allergy/AdvReac Type Severity Reaction Status Date / Time No Known Allergies Allergy Unverified 02/10/20 13:44 Active Meds: Active Medications Acetaminophen (Tylenol) 650 mg PO Q4H PRN PRN Reason: Pain MILD(1-3)/Fever >100.5/COPE Aspirin (Halfprin Ec) 81 mg PO QDAY [facility] Last Admin: 02/11/20 12:48 Dose: 81 mg Documented by: Atorvastatin Calcium (Lipitor) 40 mg PO QHS [facility] Famotidine (Pepcid) 20 mg IV BID [facility] Stop: 02/11/20 23:59 Last Admin: 02/11/20 10:59 Dose: 20 mg Documented by: Famotidine (Pepcid) 20 mg PO BID [facility] Heparin Sodium (Porcine) (Heparin) 5,000 unit SUB-Q Q12HR [facility] Last Admin: 02/11/20 11:05 Dose: 5,000 unit Documented by: Hydromorphone HCl (Dilaudid) 0.5 mg IV Q3H PRN PRN Reason: Pain , Severe (7-10) Sodium Chloride (Nacl 0.9% 1000 Ml) 1,000 mls @ 75 mls/hr IV DIRECT NUPUR Insulin Human Isoph/Insulin Regular (Humulin 70/30) 30 unit SUB-Q BIDDIAB [facility] Last Admin: 02/11/20 10:53 Dose: 30 unit Documented by: Insulin Human Lispro (Humalog) 0 unit SUB-Q ACHS [facility]; Protocol Last Admin: 02/11/20 12:49 Dose: 4 unit Documented by: Losartan Potassium (Cozaar) 100 mg PO QDAY [facility] Last Admin: 02/11/20 11:00 Dose: 100 mg Documented by: Metoclopramide HCl (Reglan) 10 mg IV Q6H PRN PRN Reason: Nausea And Vomiting Ondansetron HCl (Zofran) 4 mg IV Q8H PRN PRN Reason: Nausea And Vomiting Oxycodone/Acetaminophen (Percocet 5/325) 1 tab PO Q6H PRN PRN Reason: Pain, Moderate (4-6) Sodium Chloride (Sodium Chloride Flush Syringe 10 Ml) 10 ml IV BID [facility] Last Admin: 02/11/20 11:07 Dose: 10 ml Documented by: Sodium Chloride (Sodium Chloride Flush Syringe 10 Ml) 10 ml IV PRN PRN PRN Reason: LINE FLUSH Exam - Constitutional Vitals: Temp Pulse Resp BP Pulse Ox 98.6 F 86 15 143/88 97 02/11/20 11:50 02/11/20 11:50 02/11/20 11:50 02/11/20 11:50 02/11/20 13:54 Results - Labs CBC & Chem 7: 02/11/20 04:17 02/11/20 04:17 Labs: Abnormal lab results 02/10/20 02/10/20 02/10/20 Range/Units 14:12 21:41 23:44 RBC (3.65-5.03) M/mm3 Hct (35.5-45.6) % MCV (84-94) fl MCH (28-32) pg Lymph % (Auto) (13.4-35.0) % [place] % (Auto) (0.0-7.3) % Sodium (137-145) mmol/L Chloride (98-107) mmol/L Creatinine (0.8-1.5) mg/dL Glucose (75-100) mg/dL POC Glucose 325 H 316 H (70-105) Hemoglobin A1c 14.7 H (4-6) % Alkaline Phosphatase (35-129) units/L Albumin (3.9-5) g/dL Triglycerides (2-149) mg/dL HDL Cholesterol (40-59) mg/dL 02/11/20 02/11/20 02/11/20 Range/Units 03:57 04:17 04:17 RBC 6.85 H (3.65-5.03) M/mm3 Hct 46.2 H (35.5-45.6) % MCV 67 L (84-94) fl MCH 21 L (28-32) pg Lymph % (Auto) 43.6 H (13.4-35.0) % [place] % (Auto) 10.2 H (0.0-7.3) % Sodium 130 L (137-145) mmol/L Chloride 93.1 L (98-107) mmol/L Creatinine 0.7 L (0.8-1.5) mg/dL Glucose 295 H (75-100) mg/dL POC Glucose 251 H (70-105) Hemoglobin A1c (4-6) % Alkaline Phosphatase 135 H (35-129) units/L Albumin 3.8 L (3.9-5) g/dL Triglycerides 277 H (2-149) mg/dL HDL Cholesterol 33 L (40-59) mg/dL 02/11/20 02/11/20 Range/Units 08:12 12:00 RBC (3.65-5.03) M/mm3 Hct (35.5-45.6) % MCV (84-94) fl MCH (28-32) pg Lymph % (Auto) (13.4-35.0) % [place] % (Auto) (0.0-7.3) % Sodium (137-145) mmol/L Chloride (98-107) mmol/L Creatinine (0.8-1.5) mg/dL Glucose (75-100) mg/dL POC Glucose 257 H 298 H (70-105) Hemoglobin A1c (4-6) % Alkaline Phosphatase (35-129) units/L Albumin (3.9-5) g/dL Triglycerides (2-149) mg/dL HDL Cholesterol (40-59) mg/dL
--- NOTE | 2020-02-11 17:13 | Event Note ---
Date: 02/11/20 Vascular evaluation and recommendations noted and appreciated Scheduled for carotid endarterectomy tomorrow
--- NOTE | 2020-02-11 18:12 | Cat Scan Report ---
HEAD CT ANGIOGRAM 02/11/2020 HISTORY: Stroke FINDINGS: Contrast-enhanced CT angiographic images of the intracranial circulation were obtained. In addition to the axial images, sagittal and coronal reformatted images were obtained. In addition, 3 p odilon MIP reconstructions were produced. There is no evidence of significant abnormality. Vascular contours are normal at the level of the skull base and [place]. There is no evidence of vessel occlusion or stenosis. There is no evidence of aneurysm. IMPRESSION: Negative exam. All CT scans at this location are performed using dose reduction to ALARA by means of automated expos ure control. Signer Name: Zach Blanchard MD Signed: 02/11/2020 6:08 PM Workstation Name: [id number]
--- NOTE | 2020-02-11 18:15 | Cat Scan Report ---
NECK CT ANGIOGRAM 02/11/2020 HISTORY: Stroke FINDINGS: Contrast-enhanced CT angiographic images of the neck were obtained. In addition to the axia l images, sagittal and coronal reformatted images were obtained. In addition, 3 plane MIP reconstruct ions were produced. NASCET like criteria were used in this evaluation. The left bifurcation, there is no evidence of abnormality. At the right bifurcation, there is a focal stenosis of the internal carotid artery just above the bif urcation, in the range of approximately 60-70%. Common and internal carotid arteries are otherwise un remarkable. Vertebral artery contours are unremarkable. Visualized portions of the aortic arch are unremarkable. IMPRESSION: Moderate stenosis just above the origin of the right internal carotid artery as detailed above. All CT scans at this location are performed using dose reduction to ALARA by means of automated expos ure control. Signer Name: Zach Blanchard MD Signed: 02/11/2020 6:11 PM Workstation Name: [id number]
[2020-02-12] MEDS ORDERED: hydrALAZINE 20 MG/1 ML INJ IV ONE (07:45)
[2020-02-12] MEDS: INSULIN LISPRO 100 UNIT/ML SUB-Q SCH ×4 (08:19→22:05)
[2020-02-12] MEDS: INSULIN NPH/REGULAR 70/30 INJ SUB-Q SCH ×2 (08:20→21:58)
--- NOTE | 2020-02-12 08:48 | Anesthesia Consultation ---
Anesthesia Consult and Med Hx Date of service: 02/12/20 - Airway Anesthetic Teeth Evaluation: Poor (multiple missing, broken off teeth) ROM Head & Neck: Adequate Mental/Hyoid Distance: Adequate Mallampati Class: Class II Intubation Access Assessment: Probably Good - Pre-Operative Health Status ASA Pre-Surgery Classification: ASA3 Proposed Anesthetic Plan: General - Pulmonary Hx Smoking: Yes (current smoker) Hx Asthma: No COPD: No Hx Pneumonia: No - Cardiovascular System Hx Hypertension: Yes (non compliant with meds) - Central Nervous System CVA: Yes (TIA 3 days ago) Hx Psychiatric Problems: No - Endocrine Hx Insulin Dependent Diabetes: Yes (non compliant with insulin intake) - Other Systems Hx Substance Use: Yes (marijuana) Hx Cancer: No
--- NOTE | 2020-02-12 08:49 | Anesthesia Day of Surgery ---
Anesthesia Day of Surgery - Day of Surgery Patient Examined: Yes Patient H&P Reviewed: Yes Patient is NPO: Yes
[2020-02-12] MEDS ORDERED: MIDAZOLAM 2 MG/2 ML INJ IV NR (09:00)
[2020-02-12] MEDS ORDERED: FAMOTIDINE 20 MG/2 ML INJ IV NR (09:00)
[2020-02-12] MEDS ORDERED: ceFAZolin/STERILE WATER 2 GM/20 ML SYRINGE IV NR (10:24)
[2020-02-12] MEDS ORDERED: HEPARIN 10,000 UNITS/10 ML VIAL ONE ×2 (11:04→12:23)
[2020-02-12] MEDS ORDERED: SODIUM CHLORIDE 0.9% 500 ML 500 ML ONE (11:04)
[2020-02-12] MEDS ORDERED: PROTAMINE SULFATE 50 MG/5 ML INJ ONE (11:04)
[2020-02-12] MEDS ORDERED: THROMBIN (RECOMBINANT) 5,000 UNIT VIAL TP ONE ×2 (11:04→12:49)
[2020-02-12] MEDS ORDERED: LIDOCAINE (1%) 10 MG/1 ML VIAL 20 ML MDV ONE (11:04)
[2020-02-12] MEDS ORDERED: GELATIN SPONGE SIZE 100 TP ONE ×2 (11:04→12:49)
[2020-02-12] MEDS ORDERED: propofoL 200 MG/20 ML VIAL IV ONE (11:15)
[2020-02-12] MEDS ORDERED: ROCURONIUM 50 MG/5 ML INJ IV ONE (11:15)
[2020-02-12] MEDS ORDERED: ONDANSETRON 4 MG/2 ML INJ ONE (11:15)
[2020-02-12] MEDS ORDERED: LIDOCAINE MPF (2%) 20 MG/1 ML VIAL 5 ML ONE (11:15)
[2020-02-12] MEDS ORDERED: fentaNYL 100 MCG/2 ML INJ ONE ×2 (11:15→13:36)
[2020-02-12] MEDS ORDERED: SODIUM CHLORIDE 0.9% 100 ML ONE ×2 (12:24→13:48)
[2020-02-12] MEDS ORDERED: PHENYLEPHRINE 10 MG/1 ML INJ SDV ONE ×4 (12:24→15:29)
[2020-02-12] MEDS ORDERED: HEPARIN 10,000 UNITS/10 ML VIAL IR ONE (12:46)
[2020-02-12] MEDS ORDERED: SODIUM CHLORIDE 0.9% 500 ML IVPB IRRIGATION ONE (12:47)
[2020-02-12] MEDS ORDERED: LIDOCAINE (1%) 10 MG/1 ML VIAL 20 ML MDV INFILTRATI ONE (12:48)
[2020-02-12] MEDS ORDERED: ePHEDrine SULFATE 50 MG/1 ML INJ ONE (13:31)
[2020-02-12] MEDS ORDERED: PROTAMINE SULFATE 50 MG/5 ML INJ IV ONE (14:55)
[2020-02-12] MEDS ORDERED: PHENYLEPHRINE/NS 1,000 MCG/10 ML SYRINGE (OR USE) IV ONE (15:28)
[2020-02-12] MEDS ORDERED: HYDROmorphone 1 MG/1 ML INJ IV PRN (15:37)
[2020-02-12] MEDS ORDERED: ONDANSETRON 4 MG/2 ML INJ IV PRN (15:37)
--- NOTE | 2020-02-12 15:37 | Post Operative Note ---
Pre-op diagnosis: Severe Right-sided Carotid Stenosis Post-op diagnosis: same Procedure: Right Carotid Endarterectomy and Patch Angioplasty Anesthesia: GETA Surgeon: ROLAND JENSEN Estimated blood loss: other (25ml) Pathology: list (carotid plaque) Specimen disposition: to lab Condition: stable Disposition: PACU
[2020-02-12] MEDS ORDERED: D5W/0.45% NACL/KCL 20 MEQ 20 MEQ/1,000 ML BAG IV SCH (16:00)
[2020-02-12] MEDS ORDERED: DOPamine/D5W 800 MG/250 ML 800 MG/250 ML BAG IV SCH (16:00)
[2020-02-12] MEDS ORDERED: NITROPRUSSIDE 50 MG in DEXTROSE 5% IN WATER 248 ML IV SCH (16:00)
--- NOTE | 2020-02-12 16:38 | Operative Report ---
PREOPERATIVE DIAGNOSIS: Severe right-sided carotid stenosis. POSTOPERATIVE DIAGNOSIS: Severe right-sided carotid stenosis. PROCEDURE PERFORMED: Right carotid endarterectomy and patch angioplasty. COMPLICATIONS: None. ESTIMATED BLOOD LOSS: 25 mL. ANESTHESIA: General. INDICATIONS FOR PROCEDURE: This is a 54-year-old gentleman with insulin-dependent diabetes and tobacco abuse, who presented to the Emergency Department with symptoms of TIA with an episode of slurred speech and left upper extremity weakness. The patient underwent a stroke workup, which demonstrated severe right-sided carotid stenosis that was thought to be the cause of the patient's TIA. Therefore, a vascular consultation was obtained and it was felt that the patient would benefit from surgical intervention. The patient was explained the risks, benefits, alternatives of the procedure, expressed understanding and wished to proceed. DESCRIPTION OF PROCEDURE: After appropriate consent was obtained, the patient was brought back to the operating room and placed on the operating table in supine position. The patient was given appropriate medication for general anesthesia, was intubated without difficulty. The right neck and chest were prepped and draped in sterile fashion with ChloraPrep. Appropriate preoperative antibiotics were administered and appropriate time-out performed indicating correct patient, procedure, and site of procedure. We then began the operation by making a longitudinal incision along the anterior border of the sternocleidomastoid muscle. This was carried through subcutaneous tissue and platysma muscle with a combination of blunt dissection with electrocautery. After placing self-retaining retractors, our dissection was continued through the carotid sheath, which allows to expose the internal jugular vein. The facial vein was identified, was ligated with silk suture, which allows to retract the IJ posteriorly. Our dissection was continued onto the common carotid artery. This was mobilized and controlled with umbilical tape. Dissection was then continued distally. The vagus and hypoglossal nerve were identified and protected throughout the case. The external carotid, superior thyroid and internal carotid arteries were all controlled with vessel loops. Once that was complete, we then proceeded to administer unfractionated heparin intravenously and then ACTs were obtained throughout the remainder of the case for adequate anticoagulation. After appropriate timeout elapsed, the vascular clamps were placed first on the internal carotid artery, then external and then common carotid arteries. Then, a longitudinal arteriotomy was made with an 11-blade and extended onto the internal carotid artery with Raines scissors. On inspection of the back bleeding of the internal, this was found to be very brisk and need for shunt was not needed. Then, therefore, I proceeded to perform our endarterectomy with [place] elevator, started on the common and then extended into the external, which feathered out nicely and then onto the internal carotid artery, which also feathered nicely. The plaque was sent off the field and sent to pathology. We then used a fine mosquito to pickle water pump operator any loose debris on the endarterectomized surface. Once we are satisfied with our endarterectomy, we then proceeded to tack down the distal flap with interrupted 7-0 Prolene suture. Once complete, then performed a patch angioplasty with bovine pericardium with a running 6-0 Prolene suture. Prior to completion of our anastomosis, we flushed backwards from the internal and external carotid arteries and then forward from the common and then flushed with heparinized saline. We then proceeded to complete the anastomosis. Then, the external clamp was removed, allowed for back bleeding and then the common carotid clamp was removed and postop flow was allowed for several beats and then the internal clamp was removed. Doppler was brought on the field, which demonstrated adequate signals in the internal, external, and common carotid arteries. The patient was given protamine for heparinization reversal. We then looked to obtain further hemostasis along our suture line with hemostatic agents. Once we were satisfied with hemostasis, we then proceeded to make a stab incision just distal to our incision and #7 flat NOEL was brought through underneath the platysmal muscle. I then proceeded to approximate the sternocleidomastoid muscle with interrupted 2-0 PDS. Then, the platysma muscle was approximated with a running 3-0 PDS and the skin was approximated with a running 4-0 Monocryl. The drain was tacked in place with 3-0 nylon. Then, a Dermabond dressing was placed over our incision. Appropriate drain sponge was placed. The patient was then hooked up to NOEL bulb. The patient emerged from the general anesthesia, was extubated in the operating room, moving all extremities in stable condition. All the sponges, instrument and needle counts were correct at completion of the operation. JOB# [id number] RADHA/BERNARDINO
--- NOTE | 2020-02-12 16:59 | Progress Note ---
Assessment and Plan Patient is a 54-year-old man with a history of diabetes and hypertension, who presents with left hand numbness/weakness, slurred speech, and left hand twitching which lasted around 3 to 5 minutes. According the patient's clinical findings, he has had an acute ischemic stroke. Plan: 1. Stroke: - MRI brain: 2 subcortical infarcts noted in the right hemisphere. - CTA head/neck: Revealed right ICA 60-70% stenosis. -Carotid ultrasound: Right ICA 70% stenosis - CT head: No acute abnormality - Echo: Pending - Cont. ASA - Cont. statin. LDL goal <70. Current LDL 122. - Telemetry monitoring while in house - PT/OT/ST - DVT Ppx: Recommend lovenox -Recommended for patient not to drive until cleared by ophthalmology, as he is complaining of mild blurry vision in the right eye. Patient understood and accepted this. -Discussed with patient and in detail, who stated that at the time of initial onset of symptoms, patient had a seizure-like episode. Therefore, it is felt that patient may have had a stroke with also onset of seizure at the same time. Therefore we will start patient on Keppra 750 mg twice daily. Discussed risks and benefits of starting Keppra, and they agreed to start this medication at this time. Further recommended for patient not to drive until cleared by DMV and DPS, and he understood and accepted this. Further discussed seizure precautions. -Patient status post right carotid CEA today. -Recommend outpatient follow-up with neurology in 3 to 4 weeks. 2. Hypertension: - Recommend BP goal of normotension. -Will sign off, as I am not covering neurology service over the weekend. Please consult neurologist covering the service over the weekend for further neurologic monitoring and management. Thank you for allowing me to take part in the care of this patient. Rajiv Durand MD Neurology Subjective Date of service: 02/12/20 Principal diagnosis: Stroke Interval history: Patient had right carotid endarterectomy today. Objective - Exam Narrative Exam: Patient is alert, awake, oriented x4, follows complex commands. No dysarthria or aphasia noted. PERRL, EOMI, VFF, tongue midline, bilaterally intact to LT, no facial weakness noted. 5/5 strength in all extremities. Bilaterally intact light touch. Bilaterally intact to FTN and HTS. 2+ reflexes throughout. - Vital Sign Vital Signs - 12hr 02/12/20 02/12/20 02/12/20 06:28 08:23 09:10 Temperature 98.7 F 98.4 F Pulse Rate 87 87 91 H Respiratory 20 16 Rate Blood Pressure 168/100 165/100 163/93 O2 Sat by Pulse 97 98 Oximetry 02/12/20 02/12/20 02/12/20 15:40 15:45 15:50 Temperature 99 F Pulse Rate 82 85 86 Respiratory 18 16 15 Rate Blood Pressure 159/87 165/98 151/95 O2 Sat by Pulse 9 L 94 98 Oximetry 02/12/20 02/12/20 02/12/20 15:55 16:00 16:10 Temperature Pulse Rate 84 81 80 Respiratory 15 15 16 Rate Blood Pressure 149/92 152/93 166/81 O2 Sat by Pulse 98 98 98 Oximetry 02/12/20 02/12/20 16:20 16:30 Temperature 98.9 F Pulse Rate 78 79 Respiratory 16 16 Rate Blood Pressure 156/86 O2 Sat by Pulse 98 98 Oximetry - General Apperance Constitutional: comfortable - EENT EENT: ATNC, PERRL, mucous membranes moist - Respiratory Respiratory: lungs clear, normal breath sounds - Cardiovascular Cardiovascular: regular rate, normal S1, normal S2 Extremities: no clubbing, cyanosis, no inflammation - Gastrointestinal Gastrointestinal: normoactive bowel sounds, soft, non-tender - Integumentary Integumentary: normal - Musculoskeletal Musculoskeletal: no fluid collection, no pain - Psychiatric Psychiatric: mood/affect appropriate - Laboratory Findings CBC and BMP: 02/11/20 04:17 02/11/20 04:17 Abnormal Lab Findings: Abnormal Labs 02/10/20 02/10/20 02/10/20 14:12 14:12 14:12 RBC 6.58 H Hct MCV 68 L MCH 22 L Lymph % (Auto) 35.9 H [place] % (Auto) 9.0 H Sodium 129 L Chloride 91.3 L Creatinine 0.7 L Glucose 417 H POC Glucose Hemoglobin A1c 14.7 H Alkaline Phosphatase Albumin Triglycerides HDL Cholesterol 02/10/20 02/10/20 02/10/20 14:16 21:41 23:44 RBC Hct MCV MCH Lymph % (Auto) [place] % (Auto) Sodium Chloride Creatinine Glucose POC Glucose 356 H 325 H 316 H Hemoglobin A1c Alkaline Phosphatase Albumin Triglycerides HDL Cholesterol 02/11/20 02/11/20 02/11/20 03:57 04:17 04:17 RBC 6.85 H Hct 46.2 H MCV 67 L MCH 21 L Lymph % (Auto) 43.6 H [place] % (Auto) 10.2 H Sodium 130 L Chloride 93.1 L Creatinine 0.7 L Glucose 295 H POC Glucose 251 H Hemoglobin A1c Alkaline Phosphatase 135 H Albumin 3.8 L Triglycerides 277 H HDL Cholesterol 33 L 02/11/20 02/11/20 02/11/20 08:12 12:00 16:19 RBC Hct MCV MCH Lymph % (Auto) [place] % (Auto) Sodium Chloride Creatinine Glucose POC Glucose 257 H 298 H 121 H Hemoglobin A1c Alkaline Phosphatase Albumin Triglycerides HDL Cholesterol 02/11/20 02/12/20 02/12/20 22:01 07:56 10:44 RBC Hct MCV MCH Lymph % (Auto) [place] % (Auto) Sodium Chloride Creatinine Glucose POC Glucose 132 H 155 H 188 H Hemoglobin A1c Alkaline Phosphatase Albumin Triglycerides HDL Cholesterol 02/12/20 16:03 RBC Hct MCV MCH Lymph % (Auto) [place] % (Auto) Sodium Chloride Creatinine Glucose POC Glucose 222 H Hemoglobin A1c Alkaline Phosphatase Albumin Triglycerides HDL Cholesterol
--- NOTE | 2020-02-12 17:45 | Progress Note ---
Assessment and Plan Assessment and plan: --S/P right carotid endarterectomy 02/12/2020: Current Visit: Yes Status: Acute Continue postop care, pain management, per vascular --Right internal carotid artery stenosis> 70% Current Visit: Yes Status: Acute s/p right carotid endarterectomy per vascular Patient is being monitored in ICU , patient is sedated Not in acute distress , vital signs reviewed On antiplatelets and statins --Acute CVA Current Visit: Yes Status: Acute Not a candidate for TPA Aspirin statin. Neurology following PT. evaluation noted no needs at discharge OT. Evaluation noted, no needs at discharge Discharge planning per case management. Patient complains of mild blurring vision right eye Neurology recommend ophthalmology evaluation upon discharge Neuro work-up; CT head without contrast; no acute abnormality MRI; 2 punctate foci of restricted diffusion in the right periventricular white matter Carotid Doppler; Rt ICA > 70% stenosis but less than total occlusion Left ICA less than 50% stenosis. --IDDM (insulin dependent diabetes mellitus) Current Visit: Yes Status: Chronic On Insulin at home. Novalog mix 35units bid initiated Accu-Chek sliding scale coverage ADA diet HbA1c 14.7, diabetic education, Diabetic diet education Possible home health nurse for disease monitoring at discharge --HTN (hypertension) Current Visit: Yes Status: Chronic Cont current antihypertensives PRN medications. --Ongoing tobacco use; Current Visit: Yes Status: Acute Smoking cessation counseling. Nicotine patch as needed. --Recreational drug use; Current Visit: Yes Status: Acute Advised to quit recreational drug use --Medical noncompliance Current Visit: Yes Status: Chronic strongly advised to comply with medications diet follow-up visits Patient verbalized understanding -- DVT prophylaxis Current Visit: Yes Status: Acute on Heparin and GI prophylaxis Follow consults note and recommendations DC planning per case management Plan of care reviewed with the patient's nurse Critical care time 35 minutes History Interval history: Patient seen and examined at the bedside in ICU Patient's chart and medications reviewed Patient underwent right carotid endarterectomy this afternoon Tolerated the procedure well No patient is sedated lethargic, not in acute distress Vital signs noted Hospitalist Physical - Constitutional Vitals: Temp Pulse Resp BP Pulse Ox 98.9 F 79 16 156/86 98 02/12/20 16:30 02/12/20 16:30 02/12/20 16:30 02/12/20 16:30 02/12/20 16:30 General appearance: Present: no acute distress, well-nourished - EENT Eyes: Present: PERRL, EOM intact - Neck Neck: Present: supple, normal ROM - Respiratory Respiratory effort: normal Respiratory: bilateral: diminished, negative: rales, rhonchi, wheezing - Cardiovascular Rhythm: regular Heart Sounds: Present: S1 & S2 - Extremities Extremities: no ischemia, No edema - Abdominal General gastrointestinal: soft, non-tender, non-distended, normal bowel sounds - Integumentary Integumentary: Present: clear, warm - Psychiatric Psychiatric: appropriate mood/affect, cooperative - Neurologic Neurologic: moves all extremities Results - Labs CBC & Chem 7: 02/11/20 04:17 02/11/20 04:17 Labs: Laboratory Last Values WBC 5.6 K/mm3 (4.5-11.0) 02/11/20 04:17 RBC 6.85 M/mm3 (3.65-5.03) H 02/11/20 04:17 Hgb 14.6 gm/dl (11.8-15.2) 02/11/20 04:17 Hct 46.2 % (35.5-45.6) H 02/11/20 04:17 MCV 67 fl (84-94) L 02/11/20 04:17 MCH 21 pg (28-32) L 02/11/20 04:17 MCHC 32 % (32-34) 02/11/20 04:17 RDW 14.6 % (13.2-15.2) 02/11/20 04:17 Plt Count 303 K/mm3 (140-440) 02/11/20 04:17 Lymph % (Auto) 43.6 % (13.4-35.0) H 02/11/20 04:17 [place] % (Auto) 10.2 % (0.0-7.3) H 02/11/20 04:17 Eos % (Auto) 2.9 % (0.0-4.3) 02/11/20 04:17 Baso % (Auto) 0.4 % (0.0-1.8) 02/11/20 04:17 Lymph # 2.4 K/mm3 (1.2-5.4) 02/11/20 04:17 [place] # 0.6 K/mm3 (0.0-0.8) 02/11/20 04:17 Eos # 0.2 K/mm3 (0.0-0.4) 02/11/20 04:17 Baso # 0.0 K/mm3 (0.0-0.1) 02/11/20 04:17 Seg Neutrophils % 42.9 % (40.0-70.0) 02/11/20 04:17 Seg Neutrophils # 2.4 K/mm3 (1.8-7.7) 02/11/20 04:17 PT 13.8 Sec. (12.2-14.9) 02/10/20 14:12 INR 1.05 (0.87-1.13) 02/10/20 14:12 APTT 28.7 Sec. (24.2-36.6) 02/10/20 14:12 Sodium 130 mmol/L (137-145) L 02/11/20 04:17 Potassium 4.2 mmol/L (3.6-5.0) 02/11/20 04:17 Chloride 93.1 mmol/L (98-107) L 02/11/20 04:17 Carbon Dioxide 22 mmol/L (22-30) 02/11/20 04:17 Anion Gap 19 mmol/L 02/11/20 04:17 BUN 11 mg/dL (9-20) 02/11/20 04:17 Creatinine 0.7 mg/dL (0.8-1.5) L 02/11/20 04:17 Estimated GFR > 60 ml/min 02/11/20 04:17 BUN/Creatinine Ratio 16 % 02/11/20 04:17 Glucose 295 mg/dL (75-100) H 02/11/20 04:17 POC Glucose 156 (70-105) H 02/12/20 17:34 Hemoglobin A1c 14.7 % (4-6) H 02/10/20 14:12 Calcium 9.2 mg/dL (8.4-10.2) 02/11/20 04:17 Total Bilirubin 0.30 mg/dL (0.1-1.2) 02/11/20 04:17 AST 11 units/L (5-40) 02/11/20 04:17 ALT 11 units/L (7-56) 02/11/20 04:17 Alkaline Phosphatase 135 units/L (35-129) H 02/11/20 04:17 Troponin T < 0.010 ng/mL (0.00-0.029) 02/10/20 14:12 Total Protein 7.4 g/dL (6.3-8.2) 02/11/20 04:17 Albumin 3.8 g/dL (3.9-5) L 02/11/20 04:17 Albumin/Globulin Ratio 1.1 % 02/11/20 04:17 Triglycerides 277 mg/dL (2-149) H 02/11/20 04:17 Cholesterol 185 mg/dL (50-199) 02/11/20 04:17 LDL Cholesterol Direct 122 mg/dL (50-130) 02/11/20 04:17 HDL Cholesterol 33 mg/dL (40-59) L 02/11/20 04:17 Cholesterol/HDL Ratio 5.60 % 02/11/20 04:17 Villar/IV: Voiding Method Toilet IV Catheter Type [Left INT / Saline Lock Antecubital] Active Medications - Current Medications Current Medications: Generic Name Dose Route Start Last Admin Trade Name Freq PRN Reason Stop Dose Admin Acetaminophen 650 mg 02/10/20 22:07 02/11/20 20:38 Tylenol PO 650 mg Q4H PRN Administration Pain MILD(1-3)/Fever >100.5/COPE Acetaminophen/Hydrocodone Bitart 1 each 02/12/20 15:37 [place] 5/325 PO Q6H PRN Pain, Moderate (4-6) Aspirin 81 mg 02/11/20 11:00 02/11/20 12:48 Halfprin Ec PO 81 mg QDAY NUPUR Administration Atorvastatin Calcium 40 mg 02/11/20 22:00 02/11/20 21:46 Lipitor PO 40 mg QHS NUPUR Administration Cefazolin Sodium 2 gm 02/12/20 10:24 Ancef/Sterile Water 2 Gm/20 Ml IV 02/12/20 23:59 PREOP NR Docusate Sodium 100 mg 02/12/20 22:00 Colace PO BID NUPUR Famotidine 20 mg 02/12/20 10:00 Pepcid PO BID NUPUR Heparin Sodium (Porcine) 5,000 unit 02/11/20 10:00 02/11/20 21:46 Heparin SUB-Q 5,000 unit Q12HR NUPUR Administration Hydralazine HCl 10 mg 02/12/20 10:00 Apresoline IV Q4HR PRN Hypertension Hydromorphone HCl 0.5 mg 02/12/20 15:37 02/12/20 17:27 Dilaudid IV 0.5 mg Q3H PRN Administration Pain , Severe (7-10) Sodium Chloride 1,000 mls @ 75 mls/hr 02/10/20 22:15 02/12/20 09:54 Nacl 0.9% 1000 Ml IV 75 mls/hr DIRECT NUPUR Administration Cefazolin Sodium 1 gm in 50 mls @ 100 mls/hr 02/12/20 16:00 Ancef/Ns 1 Gm/50 Ml IV 02/13/20 00:29 Q8H NUPUR Dopamine HCl/Dextrose 800 mg in 250 mls @ 3.236 mls/hr 02/12/20 16:00 Intropin Drip 800 Mg/D5w 250 Ml IV TITR NUPUR Protocol 2 MCG/KG/MIN Sodium Nitroprusside 50 mg/ 250 mls @ 6.473 mls/hr 02/12/20 16:00 Dextrose IV TITR NUPUR Protocol 0.25 MCG/KG/MIN Potassium Chloride/Dextrose/Sod Cl 20 meq in 1,000 mls @ 75 mls/hr 02/12/20 16:00 D5w/0.45% Nacl/Kcl 20 Meq IV DIRECT NUPUR Levetiracetam 750 mg/ Dextrose 107.5 mls @ 400 mls/hr 02/12/20 22:00 IV Q12HR NUPUR Insulin Human Isoph/Insulin Regular 30 unit 02/11/20 08:30 02/12/20 08:20 Humulin 70/30 SUB-Q Not Given BIDDIAB [facility] Insulin Human Lispro 0 unit 02/10/20 22:30 02/12/20 16:38 Humalog SUB-Q 3 unit ACHS NUPUR Administration Protocol Losartan Potassium 100 mg 02/11/20 08:00 02/11/20 11:00 Cozaar PO 100 mg QDAY NUPUR Administration Metoclopramide HCl 10 mg 02/10/20 22:07 Reglan IV Q6H PRN Nausea And Vomiting Ondansetron HCl 4 mg 02/10/20 22:07 Zofran IV Q8H PRN Nausea And Vomiting Sodium Chloride 10 ml 02/11/20 10:00 02/11/20 21:51 Sodium Chloride Flush Syringe 10 Ml IV 10 ml BID NUPUR Administration Sodium Chloride 10 ml 02/10/20 22:07 Sodium Chloride Flush Syringe 10 Ml IV PRN PRN LINE FLUSH
[2020-02-12] MEDS: hydrALAZINE 20 MG/1 ML INJ IV PRN (17:55)
[2020-02-12] MEDS: HYDROcodone/ACETAMINOPHEN 5-325 MG TAB PO PRN (17:58)
[2020-02-12] MEDS: ceFAZolin/NS 1 GM/50 ML 1 GM/50 ML BAG IV SCH (18:24)
--- NOTE | 2020-02-12 19:21 | Post Anesthesia Evaluation ---
- Post Anesthesia Evaluation Patient Participated: Yes Airway Patent: Yes Stable Respiratory Function: Yes Nausea/Vomiting: No Temp > 96.8F: Yes Pain Manageable: Yes Adequeate Hydration: Yes Anesthesia Complications: No Block Receding Appropriately: Not Applicable Patient on Ventilator: No
[2020-02-12] MEDS: HEPARIN 5,000 UNIT/1 ML VIAL SUB-Q SCH ×2 (20:02→22:00)
[2020-02-12] MEDS: FAMOTIDINE 20 MG TAB PO SCH ×2 (20:02→21:57)
[2020-02-12] MEDS: LOSARTAN 50 MG TAB PO SCH (21:57)
[2020-02-12] MEDS: DOCUSATE SODIUM 100 MG CAP PO SCH (21:57)
[2020-02-12] MEDS: ASPIRIN EC 81 MG TAB PO SCH (21:58)
[2020-02-12] MEDS: levETIRAcetam 750 MG in DEXTROSE 5% IN WATER 100 ML IV SCH (22:04)
[2020-02-13] MEDS: ceFAZolin/NS 1 GM/50 ML 1 GM/50 ML BAG IV SCH (01:02)
[2020-02-13 05:09] LABS: Hematocrit 46.6 % (35.5-45.6); Hemoglobin 14.9 gm/dl (11.8-15.2); Mean Corpuscular HGB Conc 32 % (32-34); Platelet Count 268 K/mm3 (140-440); Red Blood Count 6.82 M/mm3 (3.65-5.03); Red Cell Distribution Width 14.8 % (13.2-15.2)
[2020-02-13] MEDS: hydrALAZINE 20 MG/1 ML INJ IV PRN (05:10)
[2020-02-13 05:16] LABS: Mean Corpuscular Volume 68 fl (84-94)
[2020-02-13 05:31] LABS: Alanine Aminotransferase 19 units/L (7-56); Albumin 3.3 g/dL (3.9-5); BUN/Creatinine Ratio 11; Blood Urea Nitrogen 12 mg/dL (9-20); Hemolysis Index 9
[2020-02-13 06:09] LABS: Band Neutrophils # (Manual) 0.2 K/mm3; Eosinophils % (Manual) 0 % (0.0-4.3); Total Cells Counted 100
[2020-02-13 06:10] LABS: Anisocytosis Few; Hypochromasia 2+
[2020-02-13 06:11] LABS: Platelet Estimate Consistent w Auto
--- NOTE | 2020-02-13 08:52 | Progress Note ---
Assessment and Plan Assessment and plan: --S/P right carotid endarterectomy 02/12/2020: Current Visit: Yes Status: Acute Continue postop care, pain management, per vascular --Right internal carotid artery stenosis> 70% Current Visit: Yes Status: Acute s/p right carotid endarterectomy per vascular Patient is being monitored in ICU , patient is sedated Not in acute distress , vital signs reviewed On antiplatelets and statins --Acute CVA Current Visit: Yes Status: Acute Not a candidate for TPA Aspirin statin. Neurology following PT. evaluation noted no needs at discharge OT. Evaluation noted, no needs at discharge Discharge planning per case management. Patient complains of mild blurring vision right eye Neurology recommend ophthalmology evaluation upon discharge Neuro work-up; CT head without contrast; no acute abnormality MRI; 2 punctate foci of restricted diffusion in the right periventricular white matter Carotid Doppler; Rt ICA > 70% stenosis but less than total occlusion Left ICA less than 50% stenosis. --IDDM (insulin dependent diabetes mellitus) Current Visit: Yes Status: Chronic On Insulin at home. Novalog mix 35units bid initiated Accu-Chek sliding scale coverage ADA diet HbA1c 14.7, diabetic education, Diabetic diet education Possible home health nurse for disease monitoring at discharge --HTN (hypertension) Current Visit: Yes Status: Chronic Cont current antihypertensives PRN medications. --Ongoing tobacco use; Current Visit: Yes Status: Acute Smoking cessation counseling. Nicotine patch as needed. --Recreational drug use; Current Visit: Yes Status: Acute Advised to quit recreational drug use --Medical noncompliance Current Visit: Yes Status: Chronic strongly advised to comply with medications diet follow-up visits Patient verbalized understanding -- DVT prophylaxis Current Visit: Yes Status: Acute on Heparin and GI prophylaxis Follow consults note and recommendations DC planning per case management Plan of care reviewed with the patient's nurse Critical care time 35 minutes History Interval history: Patient seen and examined at the bedside in ICU this morning Patient feels slightly better, had right carotid endarterectomy yesterday No new complaints Vital signs reviewed Hospitalist Physical - Constitutional Vitals: Temp Pulse Resp BP Pulse Ox 98.8 F 94 H 16 143/74 95 02/13/20 03:26 02/13/20 06:31 02/13/20 06:31 02/13/20 06:31 02/13/20 07:39 General appearance: Present: no acute distress, well-nourished - EENT Eyes: Present: PERRL, EOM intact - Neck Neck: Present: supple, normal ROM - Respiratory Respiratory effort: normal Respiratory: bilateral: diminished, negative: rales, rhonchi, wheezing - Cardiovascular Rhythm: regular Heart Sounds: Present: S1 & S2 - Extremities Extremities: no ischemia, No edema - Abdominal General gastrointestinal: soft, non-tender, non-distended, normal bowel sounds - Integumentary Integumentary: Present: clear, warm - Psychiatric Psychiatric: appropriate mood/affect, cooperative - Neurologic Neurologic: CNII-XII intact, moves all extremities Results - Labs CBC & Chem 7: 02/13/20 03:43 02/13/20 03:43 Labs: Laboratory Last Values WBC 5.8 K/mm3 (4.5-11.0) 02/13/20 03:43 RBC 6.82 M/mm3 (3.65-5.03) H 02/13/20 03:43 Hgb 14.9 gm/dl (11.8-15.2) 02/13/20 03:43 Hct 46.6 % (35.5-45.6) H 02/13/20 03:43 MCV 68 fl (84-94) L 02/13/20 03:43 MCH 22 pg (28-32) L 02/13/20 03:43 MCHC 32 % (32-34) 02/13/20 03:43 RDW 14.8 % (13.2-15.2) 02/13/20 03:43 Plt Count 268 K/mm3 (140-440) 02/13/20 03:43 Lymph % (Auto) 43.6 % (13.4-35.0) H 02/11/20 04:17 [place] % (Auto) Web Marketing Intern 02/13/20 03:43 Eos % (Auto) 2.9 % (0.0-4.3) 02/11/20 04:17 Baso % (Auto) 0.4 % (0.0-1.8) 02/11/20 04:17 Lymph # 2.4 K/mm3 (1.2-5.4) 02/11/20 04:17 [place] # 0.6 K/mm3 (0.0-0.8) 02/11/20 04:17 Eos # 0.2 K/mm3 (0.0-0.4) 02/11/20 04:17 Baso # 0.0 K/mm3 (0.0-0.1) 02/11/20 04:17 Add Manual Diff Complete 02/13/20 03:43 Total Counted 100 02/13/20 03:43 Seg Neutrophils % 42.9 % (40.0-70.0) 02/11/20 04:17 Seg Neuts % (Manual) 44.0 % (40.0-70.0) 02/13/20 03:43 Band Neutrophils % 3.0 % 02/13/20 03:43 Lymphocytes % (Manual) 34.0 % (13.4-35.0) 02/13/20 03:43 Reactive Lymphs % (Man) 0 % 02/13/20 03:43 Monocytes % (Manual) 18.0 % (0.0-7.3) H 02/13/20 03:43 Eosinophils % (Manual) 0 % (0.0-4.3) 02/13/20 03:43 Basophils % (Manual) 1.0 % (0.0-1.8) 02/13/20 03:43 Metamyelocytes % 0 % 02/13/20 03:43 Myelocytes % 0 % 02/13/20 03:43 Promyelocytes % 0 % 02/13/20 03:43 Blast Cells % 0 % 02/13/20 03:43 Nucleated RBC % Not Reportable 02/13/20 03:43 Seg Neutrophils # 2.4 K/mm3 (1.8-7.7) 02/11/20 04:17 Seg Neutrophils # Man 2.6 K/mm3 (1.8-7.7) 02/13/20 03:43 Band Neutrophils # 0.2 K/mm3 02/13/20 03:43 Lymphocytes # (Manual) 2.0 K/mm3 (1.2-5.4) 02/13/20 03:43 Abs React Lymphs (Man) 0.0 K/mm3 02/13/20 03:43 Monocytes # (Manual) 1.0 K/mm3 (0.0-0.8) H 02/13/20 03:43 Eosinophils # (Manual) 0.0 K/mm3 (0.0-0.4) 02/13/20 03:43 Basophils # (Manual) 0.1 K/mm3 (0.0-0.1) 02/13/20 03:43 Metamyelocytes # 0.0 K/mm3 02/13/20 03:43 Myelocytes # 0.0 K/mm3 02/13/20 03:43 Promyelocytes # 0.0 K/mm3 02/13/20 03:43 Blast Cells # 0.0 K/mm3 02/13/20 03:43 WBC Morphology Not Reportable 02/13/20 03:43 Hypersegmented Neuts Not Reportable 02/13/20 03:43 Hyposegmented Neuts Not Reportable 02/13/20 03:43 Hypogranular Neuts Not Reportable 02/13/20 03:43 Smudge Cells Not Reportable 02/13/20 03:43 Toxic Granulation Not Reportable 02/13/20 03:43 Toxic Vacuolation Not Reportable 02/13/20 03:43 Dohle Bodies Not Reportable 02/13/20 03:43 Pelger-Huet Anomaly Not Reportable 02/13/20 03:43 Rodri Rods Not Reportable 02/13/20 03:43 Platelet Estimate Consistent w auto 02/13/20 03:43 Clumped Platelets Not Reportable 02/13/20 03:43 Plt Clumps, EDTA Not Reportable 02/13/20 03:43 Large Platelets Not Reportable 02/13/20 03:43 Giant Platelets Not Reportable 02/13/20 03:43 Platelet Satelliting Not Reportable 02/13/20 03:43 Plt Morphology Comment Not Reportable 02/13/20 03:43 RBC Morphology Not Reportable 02/13/20 03:43 Dimorphic RBCs Not Reportable 02/13/20 03:43 Polychromasia Not Reportable 02/13/20 03:43 Hypochromasia 2+ 02/13/20 03:43 Poikilocytosis Not Reportable 02/13/20 03:43 Anisocytosis Few 02/13/20 03:43 Microcytosis 1+ 02/13/20 03:43 Macrocytosis Not Reportable 02/13/20 03:43 Spherocytes Not Reportable 02/13/20 03:43 Pappenheimer Bodies Not Reportable 02/13/20 03:43 Sickle Cells Not Reportable 02/13/20 03:43 Target Cells Not Reportable 02/13/20 03:43 Tear Drop Cells Not Reportable 02/13/20 03:43 Ovalocytes Not Reportable 02/13/20 03:43 Helmet Cells Not Reportable 02/13/20 03:43 [place] Bodies Not Reportable 02/13/20 03:43 [place] Rings Not Reportable 02/13/20 03:43 [place] Cells Not Reportable 02/13/20 03:43 Bite Cells Not Reportable 02/13/20 03:43 Crenated Cell Not Reportable 02/13/20 03:43 Elliptocytes Not Reportable 02/13/20 03:43 Acanthocytes (Spur) Not Reportable 02/13/20 03:43 Rouleaux Not Reportable 02/13/20 03:43 Hemoglobin C Crystals Not Reportable 02/13/20 03:43 Schistocytes Not Reportable 02/13/20 03:43 Malaria parasites Not Reportable 02/13/20 03:43 [place] Bodies Not Reportable 02/13/20 03:43 Hem Pathologist Commnt No 02/13/20 03:43 PT 13.8 Sec. (12.2-14.9) 02/10/20 14:12 INR 1.05 (0.87-1.13) 02/10/20 14:12 APTT 28.7 Sec. (24.2-36.6) 02/10/20 14:12 Sodium 137 mmol/L (137-145) D 02/13/20 03:43 Potassium 5.0 mmol/L (3.6-5.0) 02/13/20 03:43 Chloride 99.8 mmol/L (98-107) 02/13/20 03:43 Carbon Dioxide 23 mmol/L (22-30) 02/13/20 03:43 Anion Gap 19 mmol/L 02/13/20 03:43 BUN 12 mg/dL (9-20) 02/13/20 03:43 Creatinine 1.1 mg/dL (0.8-1.5) D 02/13/20 03:43 Estimated GFR > 60 ml/min 02/13/20 03:43 BUN/Creatinine Ratio 11 % 02/13/20 03:43 Glucose 165 mg/dL (75-100) H 02/13/20 03:43 POC Glucose 171 (70-105) H 02/13/20 08:48 Hemoglobin A1c 14.7 % (4-6) H 02/10/20 14:12 Calcium 9.0 mg/dL (8.4-10.2) 02/13/20 03:43 Phosphorus 4.20 mg/dL (2.5-4.5) 02/13/20 03:43 Magnesium 2.10 mg/dL (1.7-2.3) 02/13/20 03:43 Total Bilirubin 0.30 mg/dL (0.1-1.2) 02/13/20 03:43 AST 19 units/L (5-40) 02/13/20 03:43 ALT 19 units/L (7-56) 02/13/20 03:43 Alkaline Phosphatase 138 units/L (35-129) H 02/13/20 03:43 Troponin T < 0.010 ng/mL (0.00-0.029) 02/10/20 14:12 Total Protein 6.9 g/dL (6.3-8.2) 02/13/20 03:43 Albumin 3.3 g/dL (3.9-5) L 02/13/20 03:43 Albumin/Globulin Ratio 0.9 % 02/13/20 03:43 Triglycerides 277 mg/dL (2-149) H 02/11/20 04:17 Cholesterol 185 mg/dL (50-199) 02/11/20 04:17 LDL Cholesterol Direct 122 mg/dL (50-130) 02/11/20 04:17 HDL Cholesterol 33 mg/dL (40-59) L 02/11/20 04:17 Cholesterol/HDL Ratio 5.60 % 02/11/20 04:17 Villar/IV: Voiding Method Urinal IV Catheter Type [Right Wrist] Peripheral IV IV Catheter Type [Left INT / Saline Lock Antecubital] Active Medications - Current Medications Current Medications: Generic Name Dose Route Start Last Admin Trade Name Freq PRN Reason Stop Dose Admin Acetaminophen 650 mg 02/10/20 22:07 02/11/20 20:38 Tylenol PO 650 mg Q4H PRN Administration Pain MILD(1-3)/Fever >100.5/COPE Acetaminophen/Hydrocodone Bitart 1 each 02/12/20 15:37 02/12/20 17:58 [place] 5/325 PO 1 each Q6H PRN Administration Pain, Moderate (4-6) Aspirin 81 mg 02/11/20 11:00 02/12/20 21:58 Halfprin Ec PO 81 mg QDAY NUPUR Administration Atorvastatin Calcium 40 mg 02/11/20 22:00 02/12/20 21:57 Lipitor PO 40 mg QHS NUPUR Administration Docusate Sodium 100 mg 02/12/20 22:00 02/12/20 21:57 Colace PO 100 mg BID NUPUR Administration Famotidine 20 mg 02/12/20 10:00 02/12/20 21:57 Pepcid PO 20 mg BID NUPUR Administration Heparin Sodium (Porcine) 5,000 unit 02/11/20 10:00 02/12/20 22:00 Heparin SUB-Q 5,000 unit Q12HR NUPUR Administration Hydralazine HCl 10 mg 02/12/20 10:00 02/13/20 05:10 Apresoline IV 10 mg Q4HR PRN Administration Hypertension Hydralazine HCl 25 mg 02/13/20 14:00 Apresoline PO Q8HR NUPUR Sodium Chloride 1,000 mls @ 75 mls/hr 02/10/20 22:15 02/13/20 01:05 Nacl 0.9% 1000 Ml IV Infused DIRECT NUPUR Infusion Dopamine HCl/Dextrose 800 mg in 250 mls @ 3.236 mls/hr 02/12/20 16:00 Intropin Drip 800 Mg/D5w 250 Ml IV TITR NUPUR Protocol 2 MCG/KG/MIN Sodium Nitroprusside 50 mg/ 250 mls @ 6.473 mls/hr 02/12/20 16:00 Dextrose IV TITR NUPUR Protocol 0.25 MCG/KG/MIN Potassium Chloride/Dextrose/Sod Cl 20 meq in 1,000 mls @ 75 mls/hr 02/12/20 16:00 D5w/0.45% Nacl/Kcl 20 Meq IV DIRECT NUPUR Levetiracetam 750 mg/ Dextrose 107.5 mls @ 400 mls/hr 02/12/20 22:00 02/13/20 00:13 IV Infused Q12HR NUPUR Infusion Insulin Human Isoph/Insulin Regular 30 unit 02/11/20 08:30 02/12/20 21:58 Humulin 70/30 SUB-Q 30 unit BIDDIAB NUPUR Administration Insulin Human Lispro 0 unit 02/10/20 22:30 02/12/20 22:05 Humalog SUB-Q 3 unit ACHS NUPUR Administration Protocol Losartan Potassium 100 mg 02/11/20 08:00 02/12/20 21:57 Cozaar PO 100 mg QDAY NUPUR Administration Metoclopramide HCl 10 mg 02/10/20 22:07 Reglan IV Q6H PRN Nausea And Vomiting Ondansetron HCl 4 mg 02/10/20 22:07 Zofran IV Q8H PRN Nausea And Vomiting Sodium Chloride 10 ml 02/11/20 10:00 02/12/20 22:04 Sodium Chloride Flush Syringe 10 Ml IV 10 ml BID NUPUR Administration Sodium Chloride 10 ml 02/10/20 22:07 Sodium Chloride Flush Syringe 10 Ml IV PRN PRN LINE FLUSH
[2020-02-13] MEDS: INSULIN LISPRO 100 UNIT/ML SUB-Q SCH ×4 (09:07→21:31)
[2020-02-13] MEDS: INSULIN NPH/REGULAR 70/30 INJ SUB-Q SCH ×2 (09:08→17:30)
[2020-02-13] MEDS: FAMOTIDINE 20 MG TAB PO SCH ×2 (09:11→21:23)
[2020-02-13] MEDS: ASPIRIN EC 81 MG TAB PO SCH (09:11)
[2020-02-13] MEDS: LOSARTAN 50 MG TAB PO SCH (09:11)
[2020-02-13] MEDS: HEPARIN 5,000 UNIT/1 ML VIAL SUB-Q SCH ×2 (09:11→21:23)
[2020-02-13] MEDS: DOCUSATE SODIUM 100 MG CAP PO SCH ×2 (09:12→21:23)
[2020-02-13] MEDS: HYDROcodone/ACETAMINOPHEN 5-325 MG TAB PO PRN (09:14)
[2020-02-13] MEDS: levETIRAcetam 750 MG in DEXTROSE 5% IN WATER 100 ML IV SCH ×2 (10:25→22:22)
--- NOTE | 2020-02-13 10:27 | Progress Note ---
Assessment and Plan Okay to transfer patient to the floor. Patient will be observed overnight and then discharged tomorrow. He will need to be placed on appropriate medical therapy prior to discharge. Subjective Date of service: 02/13/20 Principal diagnosis: Stroke Interval history: Patient doing well following right carotid endarterectomy. Drainage catheter only produced 15 mL's of sanguinous tinged serous fluid and drainage catheter was therefore removed. The patient is able to tolerate diet without any difficulties in swallowing. No difficulties in breathing. No facial numbness. Patient is ambulated in his room without difficulty. Objective - Constitutional Vitals: Vital Signs - 12hr 02/12/20 02/12/20 02/12/20 22:30 22:45 23:00 Temperature Pulse Rate 78 84 78 Respiratory 13 14 12 Rate Blood Pressure 156/91 156/91 143/81 O2 Sat by Pulse 99 96 92 Oximetry 02/12/20 02/12/20 02/12/20 23:15 23:27 23:31 Temperature 98.4 F Pulse Rate 82 85 Respiratory 14 13 Rate Blood Pressure 143/81 143/81 O2 Sat by Pulse 96 99 Oximetry 02/12/20 02/13/20 02/13/20 23:45 00:01 00:15 Temperature Pulse Rate 86 80 85 Respiratory 11 L 12 15 Rate Blood Pressure 143/81 143/81 143/81 O2 Sat by Pulse 100 99 100 Oximetry 02/13/20 02/13/20 02/13/20 00:31 00:45 01:00 Temperature Pulse Rate 74 72 77 Respiratory 14 14 17 Rate Blood Pressure 143/81 143/81 135/76 O2 Sat by Pulse 98 97 93 Oximetry 02/13/20 02/13/20 02/13/20 01:15 01:31 01:45 Temperature Pulse Rate 77 75 76 Respiratory 16 15 15 Rate Blood Pressure 135/76 135/76 135/76 O2 Sat by Pulse 95 96 95 Oximetry 02/13/20 02/13/20 02/13/20 02:00 02:15 02:31 Temperature Pulse Rate 72 80 73 Respiratory 14 13 12 Rate Blood Pressure 151/88 151/88 151/88 O2 Sat by Pulse 96 97 98 Oximetry 02/13/20 02/13/20 02/13/20 02:45 03:00 03:15 Temperature Pulse Rate 71 72 76 Respiratory 14 13 9 L Rate Blood Pressure 151/88 143/76 143/76 O2 Sat by Pulse 97 95 96 Oximetry 02/13/20 02/13/20 02/13/20 03:26 03:31 03:45 Temperature 98.8 F Pulse Rate 85 83 Respiratory 16 15 Rate Blood Pressure 143/76 143/76 O2 Sat by Pulse 97 98 Oximetry 02/13/20 02/13/20 02/13/20 04:00 04:15 04:31 Temperature Pulse Rate 79 81 84 Respiratory 16 15 18 Rate Blood Pressure 157/87 157/87 157/87 O2 Sat by Pulse 97 96 96 Oximetry 02/13/20 02/13/20 02/13/20 04:45 05:00 05:10 Temperature Pulse Rate 82 85 84 Respiratory 16 15 Rate Blood Pressure 157/87 168/93 189/84 O2 Sat by Pulse 96 96 Oximetry 02/13/20 02/13/20 02/13/20 05:15 05:31 05:45 Temperature Pulse Rate 82 91 H 87 Respiratory 15 15 18 Rate Blood Pressure 168/93 168/93 168/93 O2 Sat by Pulse 96 97 96 Oximetry 02/13/20 02/13/20 02/13/20 06:00 06:15 06:31 Temperature Pulse Rate 92 H 98 H 94 H Respiratory 17 19 16 Rate Blood Pressure 143/74 143/74 143/74 O2 Sat by Pulse 96 94 95 Oximetry 02/13/20 02/13/20 02/13/20 07:39 09:11 09:14 Temperature Pulse Rate 99 H Respiratory 19 Rate Blood Pressure 168/82 O2 Sat by Pulse 95 Oximetry General appearance: Present: no acute distress - EENT Eyes: EOM intact ENT: hearing intact - Neck Neck: supple, normal ROM, other (No significant subcutaneous hematoma.) - Respiratory Respiratory effort: normal - Breasts Breasts: deferred - Cardiovascular Rhythm: regular Extremities: no ischemia - Gastrointestinal General gastrointestinal: Present: deferred Rectal Exam: deferred - Genitourinary Male genitourinary: deferred - Musculoskeletal Musculoskeletal: strength equal bilaterally - Neurologic Neurologic: CNII-XII intact, no focal deficits - Psychiatric Psychiatric: appropriate mood/affect, cooperative - Labs CBC & Chem 7: 02/13/20 03:43 02/13/20 03:43 Labs: Abnormal lab results 02/12/20 02/12/20 02/12/20 Range/Units 10:44 16:03 17:34 RBC (3.65-5.03) M/mm3 Hct (35.5-45.6) % MCV (84-94) fl MCH (28-32) pg Monocytes % (Manual) (0.0-7.3) % Monocytes # (Manual) (0.0-0.8) K/mm3 Glucose (75-100) mg/dL POC Glucose 188 H 222 H 156 H (70-105) Alkaline Phosphatase (35-129) units/L Albumin (3.9-5) g/dL 02/12/20 02/13/20 02/13/20 Range/Units 22:05 03:43 03:43 RBC 6.82 H (3.65-5.03) M/mm3 Hct 46.6 H (35.5-45.6) % MCV 68 L (84-94) fl MCH 22 L (28-32) pg Monocytes % (Manual) 18.0 H (0.0-7.3) % Monocytes # (Manual) 1.0 H (0.0-0.8) K/mm3 Glucose 165 H (75-100) mg/dL POC Glucose 201 H (70-105) Alkaline Phosphatase 138 H (35-129) units/L Albumin 3.3 L (3.9-5) g/dL 02/13/20 Range/Units 08:48 RBC (3.65-5.03) M/mm3 Hct (35.5-45.6) % MCV (84-94) fl MCH (28-32) pg Monocytes % (Manual) (0.0-7.3) % Monocytes # (Manual) (0.0-0.8) K/mm3 Glucose (75-100) mg/dL POC Glucose 171 H (70-105) Alkaline Phosphatase (35-129) units/L Albumin (3.9-5) g/dL Medications & Allergies - Medications Allergies/Adverse Reactions: Allergies No Known Allergies Allergy (Unverified 02/10/20 13:44) Active Medications: Generic Name Dose Route Start Last Admin Trade Name Freq PRN Reason Stop Dose Admin Acetaminophen 650 mg 02/10/20 22:07 02/11/20 20:38 Tylenol PO 650 mg Q4H PRN Administration Pain MILD(1-3)/Fever >100.5/COPE Acetaminophen/Hydrocodone Bitart 1 each 02/12/20 15:37 02/13/20 09:14 [place] 5/325 PO 1 each Q6H PRN Administration Pain, Moderate (4-6) Aspirin 81 mg 02/11/20 11:00 02/13/20 09:11 Halfprin Ec PO 81 mg QDAY NUPUR Administration Atorvastatin Calcium 40 mg 02/11/20 22:00 02/12/20 21:57 Lipitor PO 40 mg QHS NUPUR Administration Docusate Sodium 100 mg 02/12/20 22:00 02/13/20 09:12 Colace PO 100 mg BID NUPUR Administration Famotidine 20 mg 02/12/20 10:00 02/13/20 09:11 Pepcid PO 20 mg BID NUPUR Administration Heparin Sodium (Porcine) 5,000 unit 02/11/20 10:00 02/13/20 09:11 Heparin SUB-Q 5,000 unit Q12HR NUPUR Administration Hydralazine HCl 10 mg 02/12/20 10:00 02/13/20 05:10 Apresoline IV 10 mg Q4HR PRN Administration Hypertension Hydralazine HCl 25 mg 02/13/20 14:00 Apresoline PO Q8HR NUPUR Sodium Chloride 1,000 mls @ 75 mls/hr 02/10/20 22:15 02/13/20 01:05 Nacl 0.9% 1000 Ml IV Infused DIRECT NUPUR Infusion Dopamine HCl/Dextrose 800 mg in 250 mls @ 3.236 mls/hr 02/12/20 16:00 Intropin Drip 800 Mg/D5w 250 Ml IV TITR NUPUR Protocol 2 MCG/KG/MIN Sodium Nitroprusside 50 mg/ 250 mls @ 6.473 mls/hr 02/12/20 16:00 Dextrose IV TITR NUPUR Protocol 0.25 MCG/KG/MIN Potassium Chloride/Dextrose/Sod Cl 20 meq in 1,000 mls @ 75 mls/hr 02/12/20 16:00 D5w/0.45% Nacl/Kcl 20 Meq IV DIRECT NUPUR Levetiracetam 750 mg/ Dextrose 107.5 mls @ 400 mls/hr 02/12/20 22:00 02/13/20 10:25 IV 400 mls/hr Q12HR NUPUR Administration Insulin Human Isoph/Insulin Regular 30 unit 02/11/20 08:30 02/13/20 09:08 Humulin 70/30 SUB-Q 30 unit BIDDIAB NUPUR Administration Insulin Human Lispro 0 unit 02/10/20 22:30 02/13/20 09:07 Humalog SUB-Q 2 unit ACHS NUPUR Administration Protocol Losartan Potassium 100 mg 02/11/20 08:00 02/13/20 09:11 Cozaar PO 100 mg QDAY NUPUR Administration Metoclopramide HCl 10 mg 02/10/20 22:07 Reglan IV Q6H PRN Nausea And Vomiting Ondansetron HCl 4 mg 02/10/20 22:07 Zofran IV Q8H PRN Nausea And Vomiting Sodium Chloride 10 ml 02/11/20 10:00 02/13/20 09:12 Sodium Chloride Flush Syringe 10 Ml IV 10 ml BID NUPUR Administration Sodium Chloride 10 ml 02/10/20 22:07 Sodium Chloride Flush Syringe 10 Ml IV PRN PRN LINE FLUSH
[2020-02-13] MEDS: hydrALAZINE 25 MG TAB PO SCH ×2 (13:24→21:23)
[2020-02-14] MEDS: hydrALAZINE 25 MG TAB PO SCH ×2 (05:23→13:54)
[2020-02-14] MEDS: ASPIRIN EC 81 MG TAB PO SCH (10:12)
[2020-02-14] MEDS: FAMOTIDINE 20 MG TAB PO SCH (10:12)
[2020-02-14] MEDS: DOCUSATE SODIUM 100 MG CAP PO SCH (10:12)
[2020-02-14] MEDS: LOSARTAN 50 MG TAB PO SCH (10:13)
[2020-02-14] MEDS: HEPARIN 5,000 UNIT/1 ML VIAL SUB-Q SCH (10:13)
[2020-02-14] MEDS: INSULIN NPH/REGULAR 70/30 INJ SUB-Q SCH (10:14)
[2020-02-14] MEDS: INSULIN LISPRO 100 UNIT/ML SUB-Q SCH ×2 (10:15→12:52)
[2020-02-14] MEDS: levETIRAcetam 750 MG in DEXTROSE 5% IN WATER 100 ML IV SCH (10:15)
--- NOTE | 2020-02-14 11:38 | Progress Note ---
Assessment and Plan Okay to discharge the patient home from a vascular standpoint. He will need to continue with his 81 mg of aspirin and statin on discharge. Subjective Date of service: 02/14/20 Principal diagnosis: Stroke Interval history: Patient is doing well following carotid endarterectomy. Is ambulating without difficulty. His incision is clean, dry and intact without significant drainage. No significant subcutaneous hematoma. Patient has no difficulty swallowing or breathing. No facial numbness. Objective - Constitutional Vitals: Vital Signs - 12hr 02/13/20 02/14/20 02/14/20 23:46 04:57 05:23 Temperature 98.6 F 98.5 F Pulse Rate 101 H 91 H 91 H Respiratory 18 18 Rate Blood Pressure 164/95 173/92 173/92 O2 Sat by Pulse 97 94 Oximetry 02/14/20 02/14/20 07:42 11:14 Temperature Pulse Rate 98 H Respiratory Rate Blood Pressure O2 Sat by Pulse 98 Oximetry General appearance: Present: no acute distress - EENT Eyes: EOM intact ENT: hearing intact - Neck Neck: supple - Respiratory Respiratory effort: normal - Breasts Breasts: deferred Extremities: no ischemia - Gastrointestinal General gastrointestinal: Present: deferred Rectal Exam: deferred - Genitourinary Male genitourinary: deferred - Psychiatric Psychiatric: appropriate mood/affect, cooperative - Labs CBC & Chem 7: 02/13/20 03:43 02/13/20 03:43 Labs: Abnormal lab results 02/13/20 02/13/20 02/14/20 Range/Units 12:32 21:39 07:52 POC Glucose 172 H 263 H 152 H (70-105) Medications & Allergies - Medications Allergies/Adverse Reactions: Allergies No Known Allergies Allergy (Unverified 02/10/20 13:44) Home Medications: Home Medications Medication Instructions Recorded Confirmed Last Taken Type Aspirin [Aspirin BABY CHEW TAB] 81 mg PO QDAY 02/13/20 02/13/20 Unknown History Insulin Glargine [Lantus VIAL] 25 units SUB-Q QAM 02/13/20 02/13/20 Unknown History Insulin Glargine [Lantus VIAL] 35 units SUB-Q QHS 02/13/20 02/13/20 Unknown History Ramipril 10 mg PO DAILY 02/13/20 02/13/20 Unknown History oxyCODONE /ACETAMINOPHEN [Percocet 1 tab PO Q6HR PRN #20 tablet 02/14/20 Unknown Rx 5/325] Active Medications: Generic Name Dose Route Start Last Admin Trade Name Freq PRN Reason Stop Dose Admin Acetaminophen 650 mg 02/10/20 22:07 02/11/20 20:38 Tylenol PO 650 mg Q4H PRN Administration Pain MILD(1-3)/Fever >100.5/COPE Acetaminophen/Hydrocodone Bitart 1 each 02/12/20 15:37 02/13/20 09:14 [place] 5/325 PO 1 each Q6H PRN Administration Pain, Moderate (4-6) Aspirin 81 mg 02/11/20 11:00 02/14/20 10:12 Halfprin Ec PO 81 mg QDAY NUPUR Administration Atorvastatin Calcium 40 mg 02/11/20 22:00 02/13/20 21:23 Lipitor PO 40 mg QHS NUPUR Administration Docusate Sodium 100 mg 02/12/20 22:00 02/14/20 10:12 Colace PO 100 mg BID NUPUR Administration Famotidine 20 mg 02/12/20 10:00 02/14/20 10:12 Pepcid PO 20 mg BID NUPUR Administration Heparin Sodium (Porcine) 5,000 unit 02/11/20 10:00 02/14/20 10:13 Heparin SUB-Q 5,000 unit Q12HR NUPUR Administration Hydralazine HCl 10 mg 02/12/20 10:00 02/13/20 05:10 Apresoline IV 10 mg Q4HR PRN Administration Hypertension Hydralazine HCl 25 mg 02/13/20 14:00 02/14/20 05:23 Apresoline PO 25 mg Q8HR NUPUR Administration Sodium Chloride 1,000 mls @ 75 mls/hr 02/10/20 22:15 02/13/20 01:05 Nacl 0.9% 1000 Ml IV Infused DIRECT NUPUR Infusion Levetiracetam 750 mg/ Dextrose 107.5 mls @ 400 mls/hr 02/12/20 22:00 02/14/20 10:15 IV 02/14/20 23:59 400 mls/hr Q12HR NUPUR Administration Insulin Human Isoph/Insulin Regular 30 unit 02/11/20 08:30 02/14/20 10:14 Humulin 70/30 SUB-Q 30 unit BIDDIAB NUPUR Administration Insulin Human Lispro 0 unit 02/10/20 22:30 02/14/20 10:15 Humalog SUB-Q Not Given ACHS NUPUR Protocol Levetiracetam 750 mg 02/15/20 10:00 Keppra PO BID NUPUR Losartan Potassium 100 mg 02/11/20 08:00 02/14/20 10:13 Cozaar PO 100 mg QDAY NUPUR Administration Metoclopramide HCl 10 mg 02/10/20 22:07 Reglan IV Q6H PRN Nausea And Vomiting Metoprolol Tartrate 12.5 mg 02/14/20 22:00 Metoprolol PO BID [facility] Ondansetron HCl 4 mg 02/10/20 22:07 Zofran IV Q8H PRN Nausea And Vomiting Sodium Chloride 10 ml 02/11/20 10:00 02/14/20 10:13 Sodium Chloride Flush Syringe 10 Ml IV 10 ml BID NUPUR Administration Sodium Chloride 10 ml 02/10/20 22:07 Sodium Chloride Flush Syringe 10 Ml IV PRN PRN LINE FLUSH
[2020-02-14 12:46] VITALS: BP 157/99
--- NOTE | 2020-02-14 14:15 | Discharge Summary ---
Providers - Providers Date of Admission: 02/10/20 17:24 Date of discharge: 02/14/20 Attending physician: ROMEL OLIVEROS 02/10/20 22:07 Consult to Physician [CONS] Routine Comment: Consulting Provider: CARLOS OTT Physician Instructions: Reason For Exam: TIA 02/10/20 22:09 Occupational Therapy Evaluate and Treat [CONS] Routine Comment: Reason For Exam: Neuro deficits Physical Therapy Evaluation and Treat [CONS] Routine Comment: Reason For Exam: Neuro deficits 02/11/20 13:15 Consult to Physician [CONS] Routine Comment: Consulting Provider: CASIMIRO DRISCOLL Physician Instructions: Reason For Exam: Right ICA >70% stenosis 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 Hospital course: --Right internal carotid artery stenosis> 70% Current Visit: Yes Status: Acute s/p right carotid endarterectomy per vascular On pain medications ,antiplatelets and statins --Acute CVA Current Visit: Yes Status: Acute Not a candidate for TPA Aspirin statin. Neurology following PT. evaluation noted no needs at discharge OT. Evaluation noted, no needs at discharge Discharge planning per case management. Patient complains of mild blurring vision right eye Neurology recommend ophthalmology evaluation upon discharge Neuro work-up; CT head without contrast; no acute abnormality MRI; 2 punctate foci of restricted diffusion in the right periventricular white matter Carotid Doppler; Rt ICA > 70% stenosis but less than total occlusion Left ICA less than 50% stenosis. --IDDM (insulin dependent diabetes mellitus) Current Visit: Yes Status: Chronic On Insulin at home. Novalog mix 35units bid initiated Accu-Chek sliding scale coverage ADA diet HbA1c 14.7, diabetic education, Diabetic diet education Possible home health nurse for disease monitoring at discharge --HTN (hypertension) Current Visit: Yes Status: Chronic Cont current antihypertensives PRN medications. --Ongoing tobacco use; Current Visit: Yes Status: Acute Smoking cessation counseling. Nicotine patch as needed. --Recreational drug use; Current Visit: Yes Status: Acute Advised to quit recreational drug use --Medical noncompliance Current Visit: Yes Status: Chronic strongly advised to comply with medications diet follow-up visits Patient verbalized understanding -- DVT prophylaxis Current Visit: Yes Status: Acute on Heparin and GI prophylaxis Disposition: DC-01 TO HOME OR SELFCARE Time spent for discharge: 32 min Core Measure Documentation - Palliative Care Palliative Care/ Comfort Measures: Not Applicable - Core Measures Any of the following diagnoses?: stroke - Stroke Discharge Requirements Statin for LDL = or >70 mg/dl on DC: Yes Anticoag for atrial fib/atrial flutter: Not Applicable (no afib/flutter) Antithrombotic for ischemic stroke: Yes Exam - Constitutional Vitals: Temp Pulse Resp BP Pulse Ox 98.6 F 103 H 18 157/99 91 02/14/20 11:41 02/14/20 11:41 02/14/20 11:41 02/14/20 11:41 02/14/20 11:41 General appearance: Present: no acute distress, well-nourished - EENT Eyes: Present: PERRL, EOM intact - Neck Neck: Present: supple, normal ROM - Respiratory Respiratory effort: normal Respiratory: bilateral: diminished, negative: rales, rhonchi, wheezing - Cardiovascular Rhythm: regular Heart Sounds: Present: S1 & S2 - Extremities Extremities: no ischemia, No edema - Abdominal General gastrointestinal: Present: soft, non-tender, non-distended, normal bowel sounds - Integumentary Integumentary: Present: clear, warm - Musculoskeletal Musculoskeletal: strength equal bilaterally - Psychiatric Psychiatric: appropriate mood/affect, cooperative - Neurologic Neurologic: CNII-XII intact, moves all extremities Plan Activity: advance as tolerated, no driving until cleared by PCP, fall precautions, other (Seizure precautions) Diet: low cholesterol Additional Instructions: Seizure precautions. Do not drive for 6 months or until cleared by primary care physician/neurology. Advised to see private neurologist in 1 week. Advised to see equalizing saw operator in 1 week if you have any vision problems Follow up with: PRIMARY TRACE, [Primary Care Provider] - 7 Days MARCIN FLORES MD [Staff Physician] - 7 Days Forms: Discharge Signature Page Prescriptions: hydrALAZINE [Apresoline TAB] 25 mg PO Q8HR #90 tablet Docusate Sodium [Colace CAP] 100 mg PO BID PRN #20 capsule PRN Reason: Constipation Losartan [Cozaar] 100 mg PO QDAY #30 tablet Aspirin EC [Halfprin EC] 81 mg PO QDAY #30 tablet levETIRAcetam [Keppra TAB] 750 mg PO BID #60 tablet AtorvaSTATin [Lipitor] 40 mg PO QHS #30 tablet Metoprolol [Lopressor TAB] 12.5 mg PO BID #60 tablet oxyCODONE /ACETAMINOPHEN [Percocet 5/325] 1 tab PO Q6HR PRN #20 tablet PRN Reason: Pain
[2020-02-14] MEDS ORDERED: METOPROLOL TARTRATE 25 MG TAB PO SCH (22:00)
[2020-02-15] MEDS ORDERED: levETIRAcetam 500 MG TAB PO SCH (10:00)
== END 2020-02-14 15:36 | disposition home or self-care (01) | DRG 25 ==
LOC: ED 13:42 → OBSVTOIN 17:24 → 3A 17:24 → CC1 02-12 15:53 → 4A 02-13 16:18
PROVIDERS: ADMIT Internal Medicine; ATTEND Internal Medicine
PROC: 03CH3ZZ Extirpation of Matter from Right Common Carotid Artery, Percutaneous Approach (ICD-10-PCS; principal; 2020-02-12)
PROC: 03CM3ZZ Extirpation of Matter from Right External Carotid Artery, Percutaneous Approach (ICD-10-PCS; 2020-02-12)
PROC: 03CK3ZZ Extirpation of Matter from Right Internal Carotid Artery, Percutaneous Approach (ICD-10-PCS; 2020-02-12)
PROC: 03UH3KZ Supplement Right Common Carotid Artery with Nonautologous Tissue Substitute, Percutaneous Approach (ICD-10-PCS; 2020-02-12)
DX: I65.21 Occlusion and stenosis of right carotid artery (principal); I63.9 Cerebral infarction, unspecified; G81.94 Hemiplegia, unspecified affecting left nondominant side; F17.210 Nicotine dependence, cigarettes, uncomplicated; I10 Essential (primary) hypertension; E11.9 Type 2 diabetes mellitus without complications; R20.0 Anesthesia of skin; F19.90 Other psychoactive substance use, unspecified, uncomplicated; Z71.6 Tobacco abuse counseling; Z82.49 Family history of ischemic heart disease and other diseases of the circulatory system; Z79.4 Long term (current) use of insulin; Z91.14 Patient's other noncompliance with medication regimen; Z87.898 Personal history of other specified conditions
CPT/HCPCS: 36415; 36620; 70450; 70496; 70498; 70551; 80048; 80053; 80061; 82962; 83036; 83735; 84100; 84484; 85007; 85025; 85610; 85730; 88304; 88311; 93005; 93010; 93306; 93880; 94760; 96372; 99406; G0378; A4649; A9270-GY; C1768; J0360; J0690; J1170; J1644; J1815; J1953; J2250; J2370; J2405; J2704; J2720; J3010; J7030; J7040

== ENCOUNTER 2020-10-13 08:56 | Emergency (ER) | payer SELFPAY ==
--- NOTE | 2020-10-13 16:38 | Emergency Department Report ---
ED Fever HPI - General Chief Complaint: Fever Stated Complaint: FEVER Time Seen by Provider: 10/13/20 15:41 - History of Present Illness Initial Comments: Patient is a 55-year-old male presents emergency room with complaints of a fever that began 2 days ago. He denies any cough, shortness of breath, nausea, vomiting, diarrhea, abdominal pain, urinary symptoms, chest pain, rhinorrhea, headache, rashes, sore throat, ear pain. He denies any sick contacts or recent travel. He has a past medical history of diabetes, hypertension, hyperlipidemia. ED Review of Systems ROS: Stated complaint: FEVER Other details as noted in HPI Comment: All other systems reviewed and negative ED Past Medical Hx - Past Medical History Previous Medical History?: Yes Hx Hypertension: Yes (non compliant with meds) Hx Congestive Heart Failure: No Hx Diabetes: Yes Hx Arthritis: Yes Hx Asthma: No Hx COPD: No Hx HIV: No - Surgical History Past Surgical History?: Yes Additional Surgical History: right sided neck surgery - Social History Smoking Status: Current Every Day Smoker - Medications Home Medications: Home Medications Medication Instructions Recorded Confirmed Last Taken Type Insulin Glargine [Lantus VIAL] 25 units SUB-Q QAM 02/13/20 02/13/20 Unknown History Insulin Glargine [Lantus VIAL] 35 units SUB-Q QHS 02/13/20 02/13/20 Unknown History Aspirin EC [Halfprin EC] 81 mg PO QDAY #30 tablet 02/14/20 Unknown Rx AtorvaSTATin [Lipitor] 40 mg PO QHS #30 tablet 02/14/20 Unknown Rx Docusate Sodium [Colace CAP] 100 mg PO BID PRN #20 capsule 02/14/20 Unknown Rx Losartan [Cozaar] 100 mg PO QDAY #30 tablet 02/14/20 Unknown Rx Metoprolol [Lopressor TAB] 12.5 mg PO BID #60 tablet 02/14/20 Unknown Rx hydrALAZINE [Apresoline TAB] 25 mg PO Q8HR #90 tablet 02/14/20 Unknown Rx levETIRAcetam [Keppra TAB] 750 mg PO BID #60 tablet 02/14/20 Unknown Rx oxyCODONE /ACETAMINOPHEN [Percocet 1 tab PO Q6HR PRN #20 tablet 02/14/20 Unknown Rx 5/325] ED Physical Exam - General Limitations: No Limitations General appearance: alert, in no apparent distress - Head Head exam: Present: atraumatic, normocephalic - Eye Eye exam: Present: normal appearance - ENT ENT exam: Present: normal orophraynx, mucous membranes moist, TM's normal bilaterally, normal external ear exam, other (no sinus ttp bilaterally) - Respiratory Respiratory exam: Present: normal lung sounds bilaterally. Absent: respiratory distress, wheezes, rales, rhonchi, stridor, chest wall tenderness, accessory muscle use, decreased breath sounds, prolonged expiratory - Cardiovascular Cardiovascular Exam: Present: regular rate, normal rhythm, normal heart sounds. Absent: systolic murmur, diastolic murmur, rubs, gallop - GI/Abdominal GI/Abdominal exam: Present: soft, normal bowel sounds. Absent: distended, tenderness, guarding, rebound, rigid - Neurological Exam Neurological exam: Present: alert, oriented X3 - Psychiatric Psychiatric exam: Present: normal affect, normal mood - Skin Skin exam: Present: warm, dry, intact ED Course Vital Signs 10/13/20 10/13/20 09:24 17:52 Temperature 97.9 F 98.4 F Pulse Rate 78 90 Respiratory 18 18 Rate Blood Pressure 133/85 144/84 [Right] O2 Sat by Pulse 100 98 Oximetry ED Medical Decision Making - Lab Data Result diagrams: 10/13/20 16:40 10/13/20 16:40 Lab Results 10/13/20 10/13/20 10/13/20 Range/Units 09:46 16:40 16:40 WBC 3.1 L (4.5-11.0) K/mm3 RBC 6.42 H (3.65-5.03) M/mm3 Hgb 14.7 (11.8-15.2) gm/dl Hct 44.1 (35.5-45.6) % MCV 69 L (84-94) fl MCH 23 L (28-32) pg MCHC 33 (32-34) % RDW 15.0 (13.2-15.2) % Plt Count 255 (140-440) K/mm3 Wheeler % (Auto) Pest Control Pilot Add Manual Diff Complete Total Counted 100 Seg Neuts % (Manual) 40.0 (40.0-70.0) % Band Neutrophils % 0 % Lymphocytes % (Manual) 44.0 H (13.4-35.0) % Reactive Lymphs % (Man) 0 % Monocytes % (Manual) 14.0 H (0.0-7.3) % Eosinophils % (Manual) 1.0 (0.0-4.3) % Basophils % (Manual) 1.0 (0.0-1.8) % Metamyelocytes % 0 % Myelocytes % 0 % Promyelocytes % 0 % Blast Cells % 0 % Nucleated RBC % Not Reportable Seg Neutrophils # Man 1.2 L (1.8-7.7) K/mm3 Band Neutrophils # 0.0 K/mm3 Lymphocytes # (Manual) 1.4 (1.2-5.4) K/mm3 Abs React Lymphs (Man) 0.0 K/mm3 Monocytes # (Manual) 0.4 (0.0-0.8) K/mm3 Eosinophils # (Manual) 0.0 (0.0-0.4) K/mm3 Basophils # (Manual) 0.0 (0.0-0.1) K/mm3 Metamyelocytes # 0.0 K/mm3 Myelocytes # 0.0 K/mm3 Promyelocytes # 0.0 K/mm3 Blast Cells # 0.0 K/mm3 WBC Morphology Not Reportable Hypersegmented Neuts Not Reportable Hyposegmented Neuts Not Reportable Hypogranular Neuts Not Reportable Smudge Cells Not Reportable Toxic Granulation Not Reportable Toxic Vacuolation Not Reportable Dohle Bodies Not Reportable Pelger-Huet Anomaly Not Reportable Rodri Rods Not Reportable Platelet Estimate Not Reportable Clumped Platelets Not Reportable Plt Clumps, EDTA Not Reportable Large Platelets Not Reportable Giant Platelets Not Reportable Platelet Satelliting Not Reportable Plt Morphology Comment Not Reportable RBC Morphology Not Reportable Dimorphic RBCs Not Reportable Polychromasia Not Reportable Hypochromasia 2+ Poikilocytosis Not Reportable Anisocytosis Few Microcytosis 1+ Macrocytosis Not Reportable Spherocytes Few Pappenheimer Bodies Not Reportable Sickle Cells Not Reportable Target Cells Not Reportable Tear Drop Cells Not Reportable Ovalocytes Not Reportable Helmet Cells Not Reportable [place] Bodies Not Reportable Hardy Rings Not Reportable [place] Cells Not Reportable Bite Cells Not Reportable Crenated Cell Not Reportable Elliptocytes Not Reportable Acanthocytes (Spur) Not Reportable Rouleaux Not Reportable Hemoglobin C Crystals Not Reportable Schistocytes Few Malaria parasites Not Reportable [place] Bodies Not Reportable Hem Pathologist Commnt No Sodium 133 L (137-145) mmol/L Potassium 4.1 (3.6-5.0) mmol/L Chloride 97.5 L (98-107) mmol/L Carbon Dioxide 23 (22-30) mmol/L Anion Gap 17 mmol/L BUN 15 (9-20) mg/dL Creatinine 0.9 (0.8-1.3) mg/dL Estimated GFR > 60 ml/min BUN/Creatinine Ratio 17 % Glucose 256 H (75-100) mg/dL POC Glucose 183 H (70-105) mg/dL Calcium 9.1 (8.4-10.2) mg/dL Total Bilirubin 0.20 (0.1-1.2) mg/dL AST 18 (5-40) units/L ALT 18 (7-56) units/L Alkaline Phosphatase 171 H (35-129) units/L Total Protein 7.5 (6.3-8.2) g/dL Albumin 3.9 (3.9-5) g/dL Albumin/Globulin Ratio 1.1 % Urine Color (Yellow) Urine Turbidity (Clear) Urine pH (5.0-7.0) Ur Specific [place] (1.003-1.030) Urine Protein (Negative) mg/dL Urine Glucose (UA) (Negative) mg/dL Urine Ketones (Negative) mg/dL Urine Blood (Negative) Urine Nitrite (Negative) Urine Bilirubin (Negative) Urine Urobilinogen (<2.0) mg/dL Ur Leukocyte Esterase (Negative) Urine WBC (Auto) (0.0-6.0) /HPF Urine RBC (Auto) (0.0-6.0) /HPF U Epithel Cells (Auto) (0-13.0) /HPF Urine Mucus /HPF 10/13/20 Range/Units 17:52 WBC (4.5-11.0) K/mm3 RBC (3.65-5.03) M/mm3 Hgb (11.8-15.2) gm/dl Hct (35.5-45.6) % MCV (84-94) fl MCH (28-32) pg MCHC (32-34) % RDW (13.2-15.2) % Plt Count (140-440) K/mm3 Wheeler % (Auto) Add Manual Diff Total Counted Seg Neuts % (Manual) (40.0-70.0) % Band Neutrophils % % Lymphocytes % (Manual) (13.4-35.0) % Reactive Lymphs % (Man) % Monocytes % (Manual) (0.0-7.3) % Eosinophils % (Manual) (0.0-4.3) % Basophils % (Manual) (0.0-1.8) % Metamyelocytes % % Myelocytes % % Promyelocytes % % Blast Cells % % Nucleated RBC % Seg Neutrophils # Man (1.8-7.7) K/mm3 Band Neutrophils # K/mm3 Lymphocytes # (Manual) (1.2-5.4) K/mm3 Abs React Lymphs (Man) K/mm3 Monocytes # (Manual) (0.0-0.8) K/mm3 Eosinophils # (Manual) (0.0-0.4) K/mm3 Basophils # (Manual) (0.0-0.1) K/mm3 Metamyelocytes # K/mm3 Myelocytes # K/mm3 Promyelocytes # K/mm3 Blast Cells # K/mm3 WBC Morphology Hypersegmented Neuts Hyposegmented Neuts Hypogranular Neuts Smudge Cells Toxic Granulation Toxic Vacuolation Dohle Bodies Pelger-Huet Anomaly Rodri Rods Platelet Estimate Clumped Platelets Plt Clumps, EDTA Large Platelets Giant Platelets Platelet Satelliting Plt Morphology Comment RBC Morphology Dimorphic RBCs Polychromasia Hypochromasia Poikilocytosis Anisocytosis Microcytosis Macrocytosis Spherocytes Pappenheimer Bodies Sickle Cells Target Cells Tear Drop Cells Ovalocytes Helmet Cells [place] Bodies Hardy Rings [place] Cells Bite Cells Crenated Cell Elliptocytes Acanthocytes (Spur) Rouleaux Hemoglobin C Crystals Schistocytes Malaria parasites Band[place] Bodies Hem Pathologist Commnt Sodium (137-145) mmol/L Potassium (3.6-5.0) mmol/L Chloride (98-107) mmol/L Carbon Dioxide (22-30) mmol/L Anion Gap mmol/L BUN (9-20) mg/dL Creatinine (0.8-1.3) mg/dL Estimated GFR ml/min BUN/Creatinine Ratio % Glucose (75-100) mg/dL POC Glucose (70-105) mg/dL Calcium (8.4-10.2) mg/dL Total Bilirubin (0.1-1.2) mg/dL AST (5-40) units/L ALT (7-56) units/L Alkaline Phosphatase (35-129) units/L Total Protein (6.3-8.2) g/dL Albumin (3.9-5) g/dL Albumin/Globulin Ratio % Urine Color Yellow (Yellow) Urine Turbidity Clear (Clear) Urine pH 5.0 (5.0-7.0) Ur Specific [place] 1.028 (1.003-1.030) Urine Protein 100 mg/dl (Negative) mg/dL Urine Glucose (UA) 150 (Negative) mg/dL Urine Ketones Neg (Negative) mg/dL Urine Blood Mod (Negative) Urine Nitrite Neg (Negative) Urine Bilirubin Neg (Negative) Urine Urobilinogen 4.0 (<2.0) mg/dL Ur Leukocyte Esterase Neg (Negative) Urine WBC (Auto) 2.0 (0.0-6.0) /HPF Urine RBC (Auto) 9.0 (0.0-6.0) /HPF U Epithel Cells (Auto) 1.0 (0-13.0) /HPF Urine Mucus Few /HPF Vital Signs 10/13/20 10/13/20 09:24 17:52 Temperature 97.9 F 98.4 F Pulse Rate 78 90 Respiratory 18 18 Rate Blood Pressure 133/85 144/84 [Right] O2 Sat by Pulse 100 98 Oximetry - Radiology Data Radiology results: report reviewed CHEST 2 VIEWS INDICATION / CLINICAL INFORMATION: fever. COMPARISON: None available. FINDINGS: SUPPORT DEVICES: None. HEART / MEDIASTINUM: No significant abnormality. LUNGS / PLEURA: No significant pulmonary or pleural abnormality. No pneumothorax. ADDITIONAL FINDINGS: No significant additional findings. IMPRESSION: 1. No acute findings. Signer Name: Brendon Garrido MD Signed: 10/13/2020 4:33 PM Workstation Name: [id number] Transcribed By: NIGEL Dictated By: Brendon Garrido MD Electronically Authenticated By: Brendon Garrido MD Signed Date/Time: 10/13/201632 DD/ 32 TD/TT: - Medical Decision Making Patient is a 55-year-old male presents emergency room with complaints of a fever that began 2 days ago. He denies any cough, shortness of breath, nausea, vomiting, diarrhea, abdominal pain, urinary symptoms, chest pain, rhinorrhea, headache, rashes, sore throat, ear pain. He denies any sick contacts or recent travel. He has a past medical history of diabetes, hypertension, hyperlipidemia. vitals are normal. No abnormality on physical examination as documented in chart. Labs are stable. UA is without evidence of UTI. Chest x- ray with no acute process. Fever could be due to viral illness. Patient is presenting with the symptoms during COVID-19 pandemic, discussed COVID-19 with patient, discussed strict return precautions, discussed outpatient testing, discussed self quarantine. Patient does not meet hospital criteria for admission or for hospital COVID-19 testing. Please increase your fluid intake over the next several days. May take Tylenol as needed for fever or body aches. Follow-up with a primary care doctor for reexamination. Return to emergency room immediately for any new or worsening symptoms including but not limited to difficulty breathing, shortness of breath, severe chest pain, unable to tolerate by mouth intake, etc. Please self quarantine for 2 weeks from the onset of your symptoms. Please do not go out in public. If you are around others at home please wear a mask. If you need to cough or sneeze please do so in a napkin and immediately throw it away and immediately wash your hands. Wash your hands frequently. Wipe everything down. Recommend for you to get COVID-19 testing, may have this done at primary care doctor, health department, [facility] drive thru testing center - Differential Diagnosis URI, PNA, COVID 19, viral syndrome, UTI, bronchitis, sinusitis Critical care attestation.: If time is entered above; I have spent that time in minutes in the direct care of this critically ill patient, excluding procedure time. ED Disposition Clinical Impression: Hyperglycemia Fever Qualifiers: Fever type: unspecified Qualified Code(s): R50.9 - Fever, unspecified Disposition: DC-01 TO HOME OR SELFCARE Is pt being admited?: No Does the pt Need Aspirin: No Condition: Stable Instructions: COVID-19, Hyperglycemia, [id number], COVID-19: How to Protect Yourself and Others - CDC, Fever, Adult, [id number], Prevent the Spread of COVID-19 if You Are Sick - [facility] Additional Instructions: Please increase your fluid intake over the next several days. May take Tylenol as needed for fever or body aches. Follow-up with a primary care doctor for reexamination. Return to emergency room immediately for any new or worsening symptoms including but not limited to difficulty breathing, shortness of breath, severe chest pain, unable to tolerate by mouth intake, etc. Please self quarantine for 2 weeks from the onset of your symptoms. Please do not go out in public. If you are around others at home please wear a mask. If you need to cough or sneeze please do so in a napkin and immediately throw it away and immediately wash your hands. Wash your hands frequently. Wipe everything down. Recommend for you to get COVID-19 testing, may have this done at primary care doctor, health department, [facility] testing center Referrals: MARIYA WOODWARD MD [Primary Care Provider] - 2-3 Days VALERIE RUIZ MD [Staff Physician] - 2-3 Days [facility] [Provider Group] - 2-3 Days Time of Disposition: 18:53 Print Language: ROMANSH
[2020-10-13 17:28] LABS: Alanine Aminotransferase 18 units/L (7-56); Albumin 3.9 g/dL (3.9-5); BUN/Creatinine Ratio 17; Blood Urea Nitrogen 15 mg/dL (9-20); Calcium 9.1 mg/dL (8.4-10.2); Hemolysis Index 24
[2020-10-13 17:36] LABS: Hematocrit 44.1 % (35.5-45.6); Hemoglobin 14.7 gm/dl (11.8-15.2); Mean Corpuscular HGB Conc 33 % (32-34); Platelet Count 255 K/mm3 (140-440); Red Blood Count 6.42 M/mm3 (3.65-5.03)
[2020-10-13 17:53] VITALS: BP 144/84
[2020-10-13 17:55] LABS: Mean Corpuscular Volume 69 fl (84-94)
[2020-10-13 18:44] LABS: Bilirubin,Urine NEG (Negative); Blood,Urine MOD (Negative); Color,Urine Yellow (Yellow); Mucus,Urine FEW /HPF
[2020-10-13 19:20] LABS: Anisocytosis Few; Hypochromasia 2+; Schistocytes Few; Spherocytes Few; Total Cells Counted 100
== END 2020-10-13 19:10 | disposition home or self-care (01) ==
LOC: ED 08:56
DX: E11.65 Type 2 diabetes mellitus with hyperglycemia (principal); I10 Essential (primary) hypertension; M13.88 Other specified arthritis, other site; F17.200 Nicotine dependence, unspecified, uncomplicated; Z79.899 Other long term (current) drug therapy; Z98.890 Other specified postprocedural states
CPT/HCPCS: 36415; 71046; 80053; 81001; 82962; 85007; 85025

== ENCOUNTER 2022-08-29 10:13 | Emergency (ER) | payer SELFPAY ==
[2022-08-29] MEDS ORDERED: hydrALAZINE 20 MG/1 ML INJ IV ONE (17:13)
[2022-08-29] MEDS ORDERED: PROCHLORPERAZINE EDISYLATE 10 MG/2 ML VIAL IV ONE (17:14)
--- NOTE | 2022-08-29 17:15 | Emergency Department Report ---
ED Eye Problem HPI - General Chief complaint: Eye Problems Stated complaint: VISION BLURRY/HEADACHE Time Seen by Provider: 08/29/22 16:41 Source: patient Mode of arrival: Ambulatory Limitations: No Limitations - History of Present Illness Initial comments: Patient is a 57-year-old male presenting to ED with complaint of seeing dots in his left visual field along with left temporal headache for the past week. States he was seen at ophthalmology clinic at [place] on with unremarkable exam. States however his symptoms have persisted. He denies any fever or chills. States his headache seems to improve with pressure applied to the left temporal region. - Related Data Home Medications Medication Instructions Recorded Confirmed Last Taken Insulin Glargine [Lantus VIAL] 25 units SUB-Q QAM 02/13/20 02/13/20 Unknown Insulin Glargine [Lantus VIAL] 35 units SUB-Q QHS 02/13/20 02/13/20 Unknown Previous Rx's Medication Instructions Recorded Last Taken Type Aspirin EC [Halfprin EC] 81 mg PO QDAY #30 tablet 02/14/20 Unknown Rx AtorvaSTATin [Lipitor] 40 mg PO QHS #30 tablet 02/14/20 Unknown Rx Docusate Sodium [Colace CAP] 100 mg PO BID PRN #20 capsule 02/14/20 Unknown Rx Losartan [Cozaar] 100 mg PO QDAY #30 tablet 02/14/20 Unknown Rx Metoprolol [Lopressor TAB] 12.5 mg PO BID #60 tablet 02/14/20 Unknown Rx hydrALAZINE [Apresoline TAB] 25 mg PO Q8HR #90 tablet 02/14/20 Unknown Rx levETIRAcetam [Keppra TAB] 750 mg PO BID #60 tablet 02/14/20 Unknown Rx oxyCODONE /ACETAMINOPHEN [Percocet 1 tab PO Q6HR PRN #20 tablet 02/14/20 Unknown Rx 5/325] Allergies Allergy/AdvReac Type Severity Reaction Status Date / Time No Known Allergies Allergy Verified 08/29/22 10:36 ED Review of Systems ROS: Stated complaint: VISION BLURRY/HEADACHE Other details as noted in HPI Constitutional: denies: chills, fever Respiratory: denies: cough, shortness of breath, wheezing Cardiovascular: denies: chest pain, palpitations Gastrointestinal: denies: abdominal pain, nausea, diarrhea Musculoskeletal: denies: back pain, joint swelling, arthralgia Skin: denies: rash, lesions Neurological: denies: headache, weakness, paresthesias Psychiatric: denies: anxiety, depression ED Past Medical Hx - Past Medical History Hx Hypertension: Yes (non compliant with meds) Hx Congestive Heart Failure: No Hx Diabetes: Yes Hx Arthritis: Yes Hx Asthma: No Hx COPD: No Hx HIV: No Additional medical history: htn, dm, cabg - Surgical History Additional Surgical History: right sided neck surgery - Social History Smoking Status: Never Smoker Substance Use Type: None - Medications Home Medications: Home Medications Medication Instructions Recorded Confirmed Last Taken Type Insulin Glargine [Lantus VIAL] 25 units SUB-Q QAM 02/13/20 02/13/20 Unknown History Insulin Glargine [Lantus VIAL] 35 units SUB-Q QHS 02/13/20 02/13/20 Unknown History Aspirin EC [Halfprin EC] 81 mg PO QDAY #30 tablet 02/14/20 Unknown Rx AtorvaSTATin [Lipitor] 40 mg PO QHS #30 tablet 02/14/20 Unknown Rx Docusate Sodium [Colace CAP] 100 mg PO BID PRN #20 capsule 02/14/20 Unknown Rx Losartan [Cozaar] 100 mg PO QDAY #30 tablet 02/14/20 Unknown Rx Metoprolol [Lopressor TAB] 12.5 mg PO BID #60 tablet 02/14/20 Unknown Rx hydrALAZINE [Apresoline TAB] 25 mg PO Q8HR #90 tablet 02/14/20 Unknown Rx levETIRAcetam [Keppra TAB] 750 mg PO BID #60 tablet 02/14/20 Unknown Rx oxyCODONE /ACETAMINOPHEN [Percocet 1 tab PO Q6HR PRN #20 tablet 02/14/20 Unknown Rx 5/325] ED Physical Exam - General Limitations: No Limitations ED Course Vital Signs 08/29/22 08/29/22 08/29/22 10:32 16:30 17:41 Temperature 98.3 F 98.4 F Pulse Rate 86 79 90 Respiratory 16 20 Rate Blood Pressure 185/105 188/90 Blood Pressure 153/87 185/105 [Left] O2 Sat by Pulse 100 93 Oximetry ED Medical Decision Making - Medical Decision Making Patient given IV hydralazine and Compazine. On reassessment blood pressure 140s over 80s. Patient reports improved symptoms. Given recent visit to ophthalmology retinal detachment unlikely. I suspect his symptoms were likely secondary to his elevated blood pressure. He is currently not on any blood pressure medication. He was able to call his PCPs office and arrange for follow-up appointment tomorrow. He is stable for discharge home with return precautions. Critical care attestation.: If time is entered above; I have spent that time in minutes in the direct care of this critically ill patient, excluding procedure time. ED Disposition Clinical Impression: Hypertensive urgency Disposition: 01 HOME / SELF CARE / HOMELESS Is pt being admited?: No Condition: Stable Instructions: Hypertension, Adult, [id number] Additional Instructions: Please follow-up with your regular doctor tomorrow as scheduled. You may return if your symptoms worsen. Time of Disposition: 18:49
[2022-08-29] MEDS ORDERED: HYDROcodone/ACETAMINOPHEN 5-325 MG TAB PO ONE (17:33)
[2022-08-29 20:12] VITALS: BP 153/84
== END 2022-08-29 20:23 | disposition home or self-care (01) ==
LOC: ED 10:13
DX: I16.0 Hypertensive urgency (principal); I10 Essential (primary) hypertension; E11.9 Type 2 diabetes mellitus without complications; M19.90 Unspecified osteoarthritis, unspecified site; Z79.82 Long term (current) use of aspirin; Z79.4 Long term (current) use of insulin; Z79.899 Other long term (current) drug therapy
CPT/HCPCS: 82962; 96374; 96375; 99283; J0360; J0780